=== PATIENT | male | born 1980 | race Caucasian/White ===

== ENCOUNTER 2023-02-16 05:41 | Emergency (ER) | payer MEDICAID, SELFPAY ==
[2023-02-16 05:41] VITALS: BP 122/83; PULSE 101; RESP 20; TEMP 36.6; O2SAT 92; BMI 46.6
--- NOTE | 2023-02-16 05:53 | XRR_ITS ---
PROCEDURE INFORMATION: Exam: XR Chest Exam date and time: 02/16/2023 5:58 AM Age: 42 years old Clinical indication: Shortness of breath; Additional info: SOB TECHNIQUE: Imaging protocol: Radiologic exam of the chest. Views: 1 view. COMPARISON: No relevant prior studies available. FINDINGS: Lungs: Unremarkable. No consolidation. Pleural spaces: Unremarkable. No pleural effusion. No pneumothorax. Heart/Mediastinum: Unremarkable. No cardiomegaly. Bones/joints: Unremarkable. XR/XR chest 1V portable [id number] IMPRESSION: No acute findings.
--- NOTE | 2023-02-16 05:53 | ECG_ITS ---
[facility] Test Date: 2023-02-16 Pat Name: Morgan Lagunas Department: Room: Gender: Male Mobile Nurse: : 1980 Requested By: Zeferino Uribe Order Number: [id number] Leon MD: Jose Daniel Coronel M.D. Measurements Intervals [place] Rate: 100 P: 23 TX: 132 QRS: 9 QRSD: 96 T: 117 QT: 337 QTc: 436 Interpretive Statements SINUS TACHYCARDIA POSSIBLE LEFT ATRIAL ENLARGEMENT [-0.1mV P-WAVE IN V1/V2] ABNORMAL QRS-T ANGLE [QRS-T AXIS DIFFERENCE > 60] No previous ECG available for comparison Electronically Signed On 02-16-2023 10:15:25 CDT by Jose Daniel Coornel M.D. [id number]
--- NOTE | 2023-02-16 05:54 | W.ED.EXTPRO ---
Documented by User: Zeferino Castellanos DO 02/16/23 18:20 HPI - Extremity Problem General: Chief complaint: Extremity Problem,Nontraumatic Stated complaint: SOB Time Seen by Provider: 02/16/23 05:49 History of Present Illness: 42-year-old male patient with a history of schizophrenia residing in a care home. He has diabetes as well. He presents with shortness of breath increasing over the past couple of days. He denies fever. He notes a cough with some sputum production that is brand. He is also noted increase in lower extremity swelling the past several days. He was started on furosemide 2 days ago in the care home for this. He denies chest pain. Associated symptoms: Deny chest pain, fever(s) or rash Review of Systems Const: Denies: fever(s) or chills ENMT: Denies: throat pain Card: Denies: chest pain or palpitations Resp: Reports: dyspnea and productive cough GI: Denies: abdominal pain, nausea or vomiting Skin/Breast: Denies: rash PFSH ED PFSH: Medical History (Updated 02/16/23 @ 08:31 by Tyree Roa MD) BETTY (obstructive sleep apnea) Pure hypercholesterolemia, unspecified Type 2 diabetes mellitus without complications Social History Smoking and tobacco/nicotine status: current every day tobacco/nicotine user cigarettes Quit status (tobacco/nicotine): not considering quitting Second hand smoke exposure: No Caregiver/support person: Yes Lives independently: No Household members: other Details: [facility] Facility Housing: Intermediate Marital status: Single service: No Current occupational status: disabled Current occupational exposures/hazards: No Pets and animals: Yes Pets & animals: cat(s) Leisure activites: music and games Sexually active: No Do you think of yourself as: Straight/Heterosexual Current gender identity: Male Special lyle needs: No Physical Exam Const: COMMON NORMALS: no acute distress GENERAL APPEARANCE: cooperative; not ill appearing and not frail appearing HENMT: COMMON NORMALS: normocephalic, atraumatic and Normal external nose present HEAD & SCALP: normocephalic and atraumatic FACE & SINUS: normal facial exam and face symmetric NOSE: Normal external nose present Eye: COMMON NORMALS: Equal, round and reactive pupils present and EOMs intact bilaterally PUPIL: Yes Equal, round and reactive pupils present Neck/C-Spine: GENERAL: Yes trachea midline Chest: CHEST: Yes Symmetrical chest wall rise Resp: COMMON NORMALS: normal respiratory effort, No retractions, No use of accessory muscles and clear to auscultation bilaterally AUSCULTATION: clear to auscultation bilaterally Cardio: COMMON NORMALS: regular rate and regular rhythm RATE: regular rate RHYTHM: regular rhythm GI: COMMON NORMALS: Normal to inspection, nondistended, normoactive bowel sounds present Extremity: GENERAL: Yes edema (1-2+) Neuro: MARIAH COMA SCALE: document GCS findings Star coma scale eye opening: Spontaneous Star coma scale verbal response: Orientated Star coma scale motor response: Obey commands Mariah coma scale total score: 15 SENSORY EXAM: Yes extremities (intact) Psych: COMMON NORMALS: speech normal SPEECH: Yes normal speech Skin: COMMON NORMALS: no rashes or lesions noted GENERAL SKIN EXAM: no rashes or lesions noted Course Vital Signs: Vital signs: Vital Signs Temperature 97.9 F 02/16/23 05:41 Pulse Rate 105 H 02/16/23 07:30 Respiratory Rate 13 02/16/23 07:30 Blood Pressure 139/106 02/16/23 07:30 Pulse Oximetry 94 02/16/23 07:30 Oxygen Delivery Me thod Room Air 02/16/23 07:30 MDM - Extremity (Nontraumatic) Medical Decision Making Laboratory ordered to include CBC CMP BNP chest x-ray. He will be checked out to Dr. Roa at shift change. Currently he is breathing room air, satting 92%. Pulse 100, blood pressure 122/83. Lab Data 02/16/23 05:46 02/16/23 05:46 Radiology Impressions Chest X-Ray 02/16/23 05:53 IMPRESSION: No acute findings. Laboratory Results WBC 10.55 10^3/uL (3.29-11.43) 02/16/23 05:46 RBC 5.06 10^6/uL (3.85-5.65) 02/16/23 05:46 Hgb 13.70 g/dL (11.27-16.99) 02/16/23 05:46 Hct 42.4 % (37-53) 02/16/23 05:46 MCV 83.8 fl (82-101) 02/16/23 05:46 MCH 27.1 pg (27-33) 02/16/23 05:46 MCHC 32.3 g/dL (30-55) 02/16/23 05:46 RDW 14.1 % (12.1-15.1) 02/16/23 05:46 Plt Count 227 10^3/cmm (157-399) 02/16/23 05:46 MPV 9.5 fL (7.4-10.4) 02/16/23 05:46 Neut % (Auto) 60.8 % 02/16/23 05:46 Lymph % (Auto) 26.4 % 02/16/23 05:46 Teller % (Auto) 8.5 % 02/16/23 05:46 Eos % (Auto) 3.5 % 02/16/23 05:46 Baso % (Auto) 0.4 % 02/16/23 05:46 Neut # (Auto) 6.42 10^3/uL (1.8-7.7) 02/16/23 05:46 Lymph # (Auto) 2.8 10^3/uL (0.8-4.8) 02/16/23 05:46 Teller # (Auto) 0.9 10^3/uL (0.2-0.9) 02/16/23 05:46 Eos # (Auto) 0.4 10^3/uL (0.0-0.8) 02/16/23 05:46 Baso # (Auto) 0.0 10^3/uL (0.0-0.1) 02/16/23 05:46 Nucleated RBC % (auto) 0 % 02/16/23 05:46 Nucleated RBCs # 0.0 /100WBC 02/16/23 05:46 Sodium 136 mmol/L (136-145) 02/16/23 05:46 Potassium 4.1 mmol/L (3.5-5.1) 02/16/23 05:46 Chloride 99 mmol/L (98-107) 02/16/23 05:46 Carbon Dioxide 29 mmol/L (22-29) 02/16/23 05:46 Anion Gap 12.1 (5-19) 02/16/23 05:46 BUN 8 mg/dL (6-20) 02/16/23 05:46 Creatinine 0.7 mg/dL (0.7-1.2) 02/16/23 05:46 GFR Calculation 123.1 mL/min (90-130) 02/16/23 05:46 Glucose 231 mg/dL (65-115) H 02/16/23 05:46 Calculated Osmolality 288 mOsm/kg (285-295) 02/16/23 05:46 Calcium 9.4 mg/dL (8.5-10.5) 02/16/23 05:46 Total Bilirubin 0.4 mg/dL (0.15-1.2) 02/16/23 05:46 AST 41 U/L (0-40) H 02/16/23 05:46 ALT 37 U/L (0-41) 02/16/23 05:46 Alkaline Phosphatase 61 U/L (40-130) 02/16/23 05:46 C-Reactive Protein 18.8 mg/L (0.0-4.9) H 02/16/23 05:46 NT-Pro-B Natriuret Pep 36 pg/mL (0-125) 02/16/23 05:46 Total Protein 6.9 g/dL (6.6-8.7) 02/16/23 05:46 Albumin 4.1 g/dL (3.5-5.2) 02/16/23 05:46 Globulin 2.8 g/dL (1.3-4.6) 02/16/23 05:46 SARS-CoV-2 Ag (Rapid) negative (Negative) 02/16/23 06:03 Discharge Plan Discharge Patient Disposition: Home Clinical Impression: Lower extremity edema Condition: Stable Prescriptions: No Action Lantus U-100 Insulin 100 unit/mL solution 60 unit SUBCUT .in am Lantus U-100 Insulin 100 unit/mL solution 60 unit SUBCUT .AT HS metoprolol tartrate 25 mg tablet 25 mg PO DAILY loratadine [Claritin] 10 mg tablet 10 mg PO DAILY glipizide 10 mg tablet 10 mg PO BID benztropine 1 mg tablet 1 mg PO BID fluticasone propionate [Flonase Allergy Relief] 50 mcg/actuation spray,suspension 2 spray INTRANASAL DAILY metformin 1,000 mg tablet 1,000 mg PO DAILY chlorpromazine 50 mg tablet 150 mg PO QID fenofibrate nanocrystallized [Tricor] 145 mg tablet 145 mg PO DAILY bisacodyl 5 mg tablet 5 mg PO DAILY calcium carbonate 400 mg/5 mL suspension PO acetaminophen [Tylenol] 325 mg tablet 325 mg PO QID PRN famotidine 40 mg tablet 40 mg PO DAILY doxycycline monohydrate 100 mg tablet 100 mg PO BID Qty: 14 0RF Discharge Orders: Discharge ED (Routine); Ordered 02/16/23 Ordered By: Tyree Roa Referrals: [facility] [Other] Phillip Almazan MD [Primary Care Provider] - Coding Level of Care Code ED Certified Ski Patroller for Chg Fwd Documented by User: Tyree Roa MD 02/23/23 02:07 HPI - Extremity Problem General: Chief complaint: Extremity Problem,Nontraumatic Stated complaint: SOB Time Seen by Provider: 02/16/23 05:49 Review of Systems General: Reports: 10 or more systems reviewed and unremarkable except in HPI and below PFSH ED PFSH: Medical History (Updated 02/16/23 @ 08:31 by Tyree Roa MD) BETTY (obstructive sleep apnea) Pure hypercholesterolemia, unspecified Type 2 diabetes mellitus without complications Social History Smoking and tobacco/nicotine status: current every day tobacco/nicotine user cigarettes Quit status (tobacco/nicotine): not considering quitting Second hand smoke exposure: No Caregiver/support person: Yes Lives independently: No Household members: other Details: [facility] Facility Housing: Intermediate Marital status: Single service: No Current occupational status: disabled Current occupational exposures/hazards: No Pets and animals: Yes Pets & animals: cat(s) Leisure activites: music and games Sexually active: No Do you think of yourself as: Straight/Heterosexual Current gender identity: Male Special lyle needs: No Physical Exam Neuro: MARIAH COMA SCALE: document GCS findings Star coma scale total score: 15 Course ED course: I assumed care of the patient at [address] Castellanos the outgoing ER physician. Reevaluation of the patient demonstrates that the patient is stable and in no acute distress at present. We are currently awaiting laboratory evaluation and radiographic examination results. The patient is on room air with oxygen saturation of 92 to 93%. He is resting comfortably at present. He does have lower extremity edema and it does appear on review of his previous medical records that he was recently prescribed furosemide diuretic for his lower leg edema. I will provide him IV furosemide here in the emergency department. Reevaluation(s): Reevaluation #1: Patient has been doing well during his ER visit we are currently awaiting for transport back to his long-term care facility he did receive IV diuretics and states that he is also hungry we will provide him a meal tray while in the emergency department and while we wait for his transport back to his long-term care facility. Vital Signs: Vital signs: Vital Signs Temperature 97.9 F 02/16/23 05:41 Pulse Rate 105 H 02/16/23 07:30 Respiratory Rate 13 02/16/23 07:30 Blood Pressure 139/106 02/16/23 07:30 Pulse Oximetry 94 02/16/23 07:30 Oxygen Delivery Me thod Room Air 02/16/23 07:30 MDM - Extremity (Nontraumatic) Medical Records I reviewed the patient's medical records. Lab Data I reviewed the patient's lab results. 02/16/23 05:46 02/16/23 05:46 Radiology Impressions Chest X-Ray 02/16/23 05:53 IMPRESSION: No acute findings. Laboratory Results WBC 10.55 10^3/uL (3.29-11.43) 02/16/23 05:46 RBC 5.06 10^6/uL (3.85-5.65) 02/16/23 05:46 Hgb 13.70 g/dL (11.27-16.99) 02/16/23 05:46 Hct 42.4 % (37-53) 02/16/23 05:46 MCV 83.8 fl (82-101) 02/16/23 05:46 MCH 27.1 pg (27-33) 02/16/23 05:46 MCHC 32.3 g/dL (30-55) 02/16/23 05:46 RDW 14.1 % (12.1-15.1) 02/16/23 05:46 Plt Count 227 10^3/cmm (157-399) 02/16/23 05:46 MPV 9.5 fL (7.4-10.4) 02/16/23 05:46 Neut % (Auto) 60.8 % 02/16/23 05:46 Lymph % (Auto) 26.4 % 02/16/23 05:46 Teller % (Auto) 8.5 % 02/16/23 05:46 Eos % (Auto) 3.5 % 02/16/23 05:46 Baso % (Auto) 0.4 % 02/16/23 05:46 Neut # (Auto) 6.42 10^3/uL (1.8-7.7) 02/16/23 05:46 Lymph # (Auto) 2.8 10^3/uL (0.8-4.8) 02/16/23 05:46 Teller # (Auto) 0.9 10^3/uL (0.2-0.9) 02/16/23 05:46 Eos # (Auto) 0.4 10^3/uL (0.0-0.8) 02/16/23 05:46 Baso # (Auto) 0.0 10^3/uL (0.0-0.1) 02/16/23 05:46 Nucleated RBC % (auto) 0 % 02/16/23 05:46 Nucleated RBCs # 0.0 /100WBC 02/16/23 05:46 Sodium 136 mmol/L (136-145) 02/16/23 05:46 Potassium 4.1 mmol/L (3.5-5.1) 02/16/23 05:46 Chloride 99 mmol/L (98-107) 02/16/23 05:46 Carbon Dioxide 29 mmol/L (22-29) 02/16/23 05:46 Anion Gap 12.1 (5-19) 02/16/23 05:46 BUN 8 mg/dL (6-20) 02/16/23 05:46 Creatinine 0.7 mg/dL (0.7-1.2) 02/16/23 05:46 GFR Calculation 123.1 mL/min (90-130) 02/16/23 05:46 Glucose 231 mg/dL (65-115) H 02/16/23 05:46 Calculated Osmolality 288 mOsm/kg (285-295) 02/16/23 05:46 Calcium 9.4 mg/dL (8.5-10.5) 02/16/23 05:46 Total Bilirubin 0.4 mg/dL (0.15-1.2) 02/16/23 05:46 AST 41 U/L (0-40) H 02/16/23 05:46 ALT 37 U/L (0-41) 02/16/23 05:46 Alkaline Phosphatase 61 U/L (40-130) 02/16/23 05:46 C-Reactive Protein 18.8 mg/L (0.0-4.9) H 02/16/23 05:46 NT-Pro-B Natriuret Pep 36 pg/mL (0-125) 02/16/23 05:46 Total Protein 6.9 g/dL (6.6-8.7) 02/16/23 05:46 Albumin 4.1 g/dL (3.5-5.2) 02/16/23 05:46 Globulin 2.8 g/dL (1.3-4.6) 02/16/23 05:46 SARS-CoV-2 Ag (Rapid) negative (Negative) 02/16/23 06:03 All radiology interpretation(s) finalized by discharge ED provider radiology interpretation(s): CXR: FINDINGS: Lungs: Unremarkable. No consolidation. Pleural spaces: Unremarkable. No pleural effusion. No pneumothorax. Heart/Mediastinum: Unremarkable. No cardiomegaly. Bones/joints: Unremarkable. XR/XR chest 1V portable [id number] IMPRESSION: No acute findings. Discharge Plan Discharge Patient Disposition: Home Clinical Impression: Lower extremity edema Condition: Stable Prescriptions: No Action Lantus U-100 Insulin 100 unit/mL solution 60 unit SUBCUT .in am Lantus U-100 Insulin 100 unit/mL solution 60 unit SUBCUT .AT HS metoprolol tartrate 25 mg tablet 25 mg PO DAILY loratadine [Claritin] 10 mg tablet 10 mg PO DAILY glipizide 10 mg tablet 10 mg PO BID benztropine 1 mg tablet 1 mg PO BID fluticasone propionate [Flonase Allergy Relief] 50 mcg/actuation spray,suspension 2 spray INTRANASAL DAILY metformin 1,000 mg tablet 1,000 mg PO DAILY chlorpromazine 50 mg tablet 150 mg PO QID fenofibrate nanocrystallized [Tricor] 145 mg tablet 145 mg PO DAILY bisacodyl 5 mg tablet 5 mg PO DAILY calcium carbonate 400 mg/5 mL suspension PO acetaminophen [Tylenol] 325 mg tablet 325 mg PO QID PRN famotidine 40 mg tablet 40 mg PO DAILY doxycycline monohydrate 100 mg tablet 100 mg PO BID Qty: 14 0RF Discharge Orders: Discharge ED (Routine); Ordered 02/16/23 Ordered By: Tyree Roa Referrals: [facility] [Other] Phillip Almazan MD [Primary Care Provider] - Coding Level of Care Code ED Certified Ski Patroller for Jaredg Li
[2023-02-16 06:00] VITALS: BP 122/83; PULSE 100; RESP 20; O2SAT 94
[2023-02-16 06:00] LABS: Basophils % 0.4 %; Eosinophils # 0.4 10^3/uL (0.0-0.8); Eosinophils % 3.5 %; Hematocrit 42.4 % (37-53); Lymphocytes # 2.8 10^3/uL (0.8-4.8); Lymphocytes % 26.4 %; Mean Corpuscular HGB Conc 32.3 g/dL (30-55); Mean Corpuscular Hemoglobin 27.1 pg (27-33); Mean Corpuscular Volume 83.8 fl (82-101); Mean Platelet Volume 9.5 fL (7.4-10.4); Monocytes # 0.9 10^3/uL (0.2-0.9); Monocytes % 8.5 %; Neutrophils # 6.42 10^3/uL (1.8-7.7); Neutrophils % 60.8 %; Nucleated Red Blood Cells % 0 %; Platelet Count 227 10^3/cmm (157-399); Red Blood Count 5.06 10^6/uL (3.85-5.65); Red Cell Distribution Width 14.1 % (12.1-15.1); White Blood Count 10.55 10^3/uL (3.29-11.43)
[2023-02-16 06:22] LABS: SARS Covid-2 Antigen negative (Negative)
[2023-02-16 06:25] LABS: Alanine Aminotransferase 37 U/L (0-41); Albumin Level 4.1 g/dL (3.5-5.2); Alkaline Phosphatase 61 U/L (40-130); Anion Gap 12.1 (5-19); Aspartate Amino Transferase 41 U/L (0-40); Blood Urea Nitrogen 8 mg/dL (6-20); C Reactive Protein 18.8 mg/L (0.0-4.9); Calcium 9.4 mg/dL (8.5-10.5); Carbon Dioxide 29 mmol/L (22-29); Chloride 99 mmol/L (98-107); Globulin 2.8 g/dL (1.3-4.6); Glomerular Filtration Rate 123.1 mL/min (90-130); Glucose 231 mg/dL (65-115); NT Pro B Type Natriuretic Pept 36 pg/mL (0-125); Osmolality Calculated 288 mOsm/kg (285-295); Potassium 4.1 mmol/L (3.5-5.1); Sodium 136 mmol/L (136-145); Total Bilirubin 0.4 mg/dL (0.15-1.2); Total Protein 6.9 g/dL (6.6-8.7)
[2023-02-16 07:30] VITALS: BP 139/106; PULSE 105; RESP 13; O2SAT 94
[2023-02-16] MEDS: FUROsemide 10 mg/mL SDV 4mL 40 MG IVP (08:23)
--- NOTE | 2023-02-16 08:28 | PC.NURSE ---
SHAWNEE Muñoz, called for an update and report given.
--- NOTE | 2023-02-16 09:15 | PC.NURSE ---
SHAWNEE Hdez- report given and advised that we are sending back xray and lab results, waiting medicaid ride
== END 2023-02-16 13:54 | disposition home or self-care (01) ==
PROVIDERS: Emergency Medicine; Emergency Provider Internal Medicine; PCP Internal Medicine
DX: R60.0 Localized edema (principal); Z79.02 Long term (current) use of antithrombotics/antiplatelets; Z79.4 Long term (current) use of insulin; Z11.52 Encounter for screening for COVID-19; E11.9 Type 2 diabetes mellitus without complications; F17.210 Nicotine dependence, cigarettes, uncomplicated
CPT/HCPCS: 71045; 80053; 83880; 85025; 86140; 87426; 93005; 96374; 99285; J1940

== ENCOUNTER → 2023-08-19 09:15 | Outpatient (BNVA) | payer MEDICAID, SELFPAY | PROVIDERS: PCP Internal Medicine; Visit Provider Nurse Practitioner Family | DX: L73.2 Hidradenitis suppurativa (principal); L89.93 Pressure ulcer of unspecified site, stage 3; Z51.89 Encounter for other specified aftercare | CPT/HCPCS: 87070; 87077; 87176; 87186; 87205 ==

== ENCOUNTER 2024-11-05 15:02 | Inpatient (IN) | payer MEDICAID, SELFPAY ==
--- OUTSIDE RECORDS SUMMARY | 2018-03-04 07:36 | XMS_ITS | Continuity of Care Document ---
Author Organization [facility] Address [address] [place] [phone] Phone Care Team Providers Care Groundhand Name Role Phone Elaine Schultz Unavailable Unavailable Allergies, Adverse Reactions, Alerts Substance Reaction Status Criticality HALOPERIDOL LACTATE Active No Infor mation haloperidol Active No Information Medications Medication Instructions Dosage Effective Dates (start - stop) Status Comments benztropine 1 mg tablet take 1 tablet by oral route 2 times every day 1 MG - Active chlorpromazine 50 mg tablet take 3 tablet by oral route every 6 hours 150 MG - Active perphenazine 2 mg tablet take 7 tablet by oral route 2 times every day (14mg dose) 14 MG - Active trazodone 50 mg tablet take 1 tablet by oral route every bedtime may repeat x 1 if not rest in 1 hour 50 MG - Active Procedures Procedure Date NURSING FAC CARE, SUBSEQ NURSING FAC CARE, SUBSEQ NURSING FAC CARE, SUBSEQ NURSING FAC CARE, SUBSEQ NURSING FAC CARE, SUBSEQ NURSING FAC CARE, SUBSEQ NURSING FAC CARE, SUBSEQ NURSING FAC CARE, SUBSEQ NURSING FAC CARE, SUBSEQ ANNUAL NURSING FAC ASSESSMNT NURSING FAC CARE, SUBSEQ NURSING FAC CARE, SUBSEQ NURSING FAC CARE, SUBSEQ NURSING FAC CARE, SUBSEQ NURSING FAC CARE, SUBSEQ NURSING FAC CARE, SUBSEQ NURSING FAC CARE, SUBSEQ NURSING FAC CARE, SUBSEQ NURSING FAC CARE, SUBSEQ NURSING FAC CARE, SUBSEQ NURSING FAC CARE, SUBSEQ NURSING FAC CARE, SUBSEQ NURSING FAC CARE, SUBSEQ NURSING FAC CARE, SUBSEQ ANNUAL NURSING FAC ASSESSMNT NURSING FAC CARE, SUBSEQ NURSING FAC CARE, SUBSEQ NURSING FAC CARE, SUBSEQ NURSING FAC CARE, SUBSEQ NURSING FAC CARE, SUBSEQ NURSING FAC CARE, SUBSEQ NURSING FAC CARE, SUBSEQ NURSING FAC CARE, SUBSEQ NURSING FAC CARE, SUBSEQ NURSING FAC CARE, SUBSEQ ANNUAL NURSING FAC ASSESSMNT NURSING FACILITY CARE, INIT Advance Directives Directive Yes / No Effective Date File Name No Information Encounters Encounter Description Practice Location Reason(s) For Visit Diagnoses Date Provider Providers Copied on Encounter [facility], [address] [place] [address], [facility], tel:[phone] *[facility] No Information 8 Bola Henry. [address] [place], [place], [facility], . tel:[phone] NURSING FAC CARE, [facility], [address] [place] [address], [facility], tel:[phone] [facility] foot (chief complaint) Nail dystrophyType 2 diabetes mellitus w/ other circulatory complicationAt herosclerosis of other arteries 0 7 Raul Harleen. [address], [place], [facility], [place]. tel:[phone] NURSING FAC CARE, [facility], [address], [place], [facility], tel:[phone] [facility] chronic conditions (chief complaint)p yonatial cyst (chief complaint) Paranoid schizophreniaO ther insomniaPiloni lalo abscess [phone] No Information NURSING FAC CARE, [facility], [address] [place], [address], [place] tel:[phone] [facility] chronic conditions (chief complaint)H &P (chief complaint) Dietary counseling and surveillance No Information NURSING FAC CARE, [facility], [address] [place] [address], [address], [place] tel:[phone] [facility] chronic conditions (chief complaint) No Information No Information NURSING FAC CARE, [facility], [address] [place] [address], [address], [place] tel:[phone] [facility] chronic conditions (chief complaint) No Information No Information NURSING FAC CARE, [facility], [address] [place] [address], [address], [place] tel:[phone] [facility] chronic conditions (chief complaint) No Information No Information NURSING FAC CARE, [facility], [address] [place] [address], [address], [place] tel:[phone] [facility] chronic conditions (chief complaint) Type 2 diabetes mellitus with hyperglycemia No Information NURSING FAC CARE, [facility], [address] [place] [address], [address], [place] tel:[phone] [facility] chronic conditions (chief complaint) No Information No Information NURSING FAC CARE, [facility], [address] [place] [address], [address], [place] tel:[phone] [facility] chronic conditions (chief complaint) No Information No Information ANNUAL NURSING FAC ASSESSMNT [facility], [address] [place] [address], [address], [place] tel:[phone] [facility] chronic conditions (chief complaint)H &P (chief complaint) No Information 6 No Information NURSING FAC CARE, [facility], [address] [place] [address], [address], [place] tel:[phone] [facility] chronic conditions (chief complaint) No Information Feb-0 3 6 No Information NURSING FAC CARE, [facility], [address] [place] [address], [address], tel:[phone] [facility] chronic conditions (chief complaint) No Information Jan-0 6 No Information NURSING FAC CARE, [facility], [address] [place] [address], [address], [place] tel:[phone] [facility] chronic conditions (chief complaint) No Information Dec-0 6 No Information NURSING FAC CARE, [facility], [address] [place] [address], [address], tel:[phone] [facility] chronic conditions (chief complaint) No Information Nov-0 6 No Information NURSING FAC CARE, [facility], [address] [place] [address], [address], [place] tel:[phone] [facility] chronic conditions (chief complaint) No Information 0 6 No Information NURSING FAC CARE, [facility], [address] [place] [address], [address], [place] tel:[phone] [facility] chronic conditions (chief complaint) No Information 6 No Information NURSING FAC CARE, [facility], [address] [place] [address], [address], [place] tel:[phone] [facility] chronic conditions (chief complaint) No Information 6 No Information NURSING FAC CARE, [facility], [address] [place] [address], [address], [place] tel:[phone] [facility] chronic conditions (chief complaint) No Information 6 No Information NURSING FAC CARE, [facility], [address] [place] [address], [address], [place] tel:[phone] [facility] chronic conditions (chief complaint) No Information 0 6 No Information NURSING FAC CARE, [facility], [address] [place] [address], [address], tel:[phone] [facility] chronic conditions (chief complaint) No Information 6 No Information NURSING FAC CARE, [facility], [address] [place] [address], [address], tel:[phone] [facility] chronic conditions (chief complaint) No Information 6 No Information NURSING FAC CARE, [facility], [address] [place] [address], [address], tel:[phone] [facility] chronic conditions (chief complaint) No Information 5 No Information NURSING FAC CARE, [facility], [address] [place] [address], [address], tel:[phone] [facility] chronic conditions (chief complaint) No Information 5 No Information NURSING FAC CARE, [facility], [address] [place] [address], [address], tel:[phone] [facility] chronic conditions (chief complaint) No Information 5 No Information ANNUAL NURSING FAC ASSESSMNT [address], [address], tel:[phone] [facility] Chronic conditions (chief complaint)H istory & Physical (chief complaint)S chiophrenia (chief complaint) No Information 5 No Information NURSING FAC CARE, [facility], [address] [place] [address], [address], tel:[phone] [facility] Chronic conditions (chief complaint) No Information 5 No Information NURSING FAC CARE, [address], [address], tel:[phone] [facility] Chronic conditions (chief complaint) No Information 8 5 No Information NURSING FAC CARE, [facility], [address] [place] [address], [address], tel:[phone] [facility] Chronic conditions (chief complaint) No Information 8- 5 No Information NURSING FAC CARE, [facility], [address] [place] [address], [address], [place] tel:[phone] [facility] Chronic conditions (chief complaint) No Information 5 No Information NURSING FAC CARE, [facility], [address] [place] [address], [address], [place] tel:[phone] [facility] Chronic conditions (chief complaint) No Information 0 5 No Information NURSING FAC CARE, [facility], [address] [place] [address], [address], [place] tel:[phone] [facility] Chronic conditions (chief complaint) No Information 5 No Information NURSING FAC CARE, [facility], [address] [place] [address], [address], [place] tel:[phone] [facility] Chronic conditions (chief complaint) No Information 5 No Information NURSING FAC CARE, [facility], [address] [place] [address], [address], [place] tel:[phone] [facility] Chronic conditions (chief complaint) No Information 5 No Information NURSING FAC CARE, [facility], [address] [place] [address], [address], [place] tel:[phone] [facility] Chronic conditions (chief complaint) No Information 4 No Information NURSING FAC CARE, [facility], [address] [place] [address], [address], [place] tel:[phone] [facility] Chronic conditions (chief complaint) No Information 0 8- 4 No Information ANNUAL NURSING FAC ASSESSMNT [facility], [address] [place] [address], [address], tel:[phone] [facility] Chronic conditions (chief complaint)H istory & Physical (chief complaint) No Information Sep-0 3- 4 No Information [facility], [address] [place] [address], [place], [address], [place] tel:[phone] [facility] chronic conditions (chief complaint) No Information No Information [facility], [address] [facility] [place], [address], [place] tel:[phone] *[facility] No Information No Information Family History Family Member Type Diagnosis Age At Onset Mother Problem (finding) Alive and well Immunizations Vaccine Date Status Comments pneumo (2 yrs or older) (PPV23) administe red Source: Other Provider Payers Payer name Insurance type Covered republican ID Authoriza tion(s) No Information Social History Type Description Quantity Date Captured Comments Sex Male Smoking Status No Information Chief Complaint And Reason For Visit No Information Reason For Referral Reason For Referral No Information Plan Of Treatment Date Type Action Status Goal Dietary management education , guidance, and counseling completed Goal Dietary management education , guidance, and counseling completed Goal Dietary management education , guidance, and counseling completed Goal Dietary management education , guidance, and counseling completed Goal Dietary management education , guidance, and counseling completed Goal Dietary management education , guidance, and counseling completed Goal Dietary management education , guidance, and counseling completed Goal Dietary management education , guidance, and counseling completed Goal Dietary management education , guidance, and counseling completed Goal Dietary management education , guidance, and counseling completed Goal Dietary management education , guidance, and counseling completed Goal Dietary management education , guidance, and counseling completed Goal Dietary management education , guidance, and counseling completed Goal Dietary management education , guidance, and counseling completed Goal Dietary management education , guidance, and counseling completed Goal Dietary management education , guidance, and counseling completed Goal Dietary management education , guidance, and counseling completed Goal Dietary management education , guidance, and counseling completed History Of Present Illness Encounter Date Complaint History Of Prese nt Illness foot It occurs interm ittently and is stable. Location: foot. There is no radiation. Context: there is no injury. The pain is aggravated by climbing stairs, walking and standing. The pain is relieved by toenail care. Associated symptoms include decreased mobility, numbness, swelling and weakness. Pertinent negatives include bruising, crepitus, difficulty initiating sleep, joint instability, joint tenderness, limping, locking, nocturnal awakening, nocturnal pain, popping, spasms, tingling in the arms and tingling in the legs. chronic conditions 1) Paranoid s chizophrenia (onset 11/12/2013; Stable.) 2) Other insomnia (onset 11/12/2013; Stable.) pyonatial cyst The symptoms beg an 2 weeks ago. The symptoms are reported as being moderate. He states the symptoms are acute and are of new onset. appt with dr. teran for removal. H&P chronic conditions 1) Paranoid s chizophrenia (onset 11/12/2013; Stable.) 2) Other insomnia (onset 11/12/2013; Stable.) chronic conditions 1) Paranoid s chizophrenia (onset 11/12/2013; Stable.) 2) Other insomnia (onset 11/12/2013; Stable.) chronic conditions 1) Paranoid s chizophrenia (onset 11/12/2013; Stable.) 2) Other insomnia (onset 11/12/2013; Stable.) chronic conditions 1) Paranoid s chizophrenia (onset 11/12/2013; Stable.) 2) Other insomnia (onset 11/12/2013; Stable.) chronic conditions 1) Paranoid s chizophrenia (onset 11/12/2013; Stable.) 2) Other insomnia (onset 11/12/2013; Stable.) chronic conditions 1) Paranoid s chizophrenia (onset 11/12/2013; Stable.) 2) Other insomnia (onset 11/12/2013; Stable.) chronic conditions 1) Other inso mnia (onset 11/12/2013; Stable.) 2) Paranoid schizophrenia (onset 11/12/2013; Stable.) H&P chronic conditions 1) Paranoid s chizophrenia (onset 11/12/2013; Stable.) 2) Other insomnia (onset 11/12/2013; Stable.) chronic conditions 1) Paranoid s chizophrenia (onset 11/12/2013; Stable.) 2) Other insomnia (onset 11/12/2013; Stable.) chronic conditions 1) Paranoid s chizophrenia (onset 11/12/2013; Stable.) 2) Other insomnia (onset 11/12/2013; Stable.) chronic conditions 1) Paranoid s chizophrenia (onset 11/12/2013; Stable.) chronic conditions 1) Other inso mnia (onset 11/12/2013; Stable.) 2) Paranoid schizophrenia (onset 11/12/2013; Stable.) chronic conditions 1) Other inso mnia (onset 11/12/2013; Stable.) 2) Paranoid schizophrenia (onset 11/12/2013; Stable.) 3) Type 2 diabetes mellitus with hyperglycemia (Chronic.) Pertinent negatives include fatigue. chronic conditions 1) Paranoid s chizophrenia (onset 11/12/2013; Stable.) 2) Other insomnia (onset 11/12/2013; Stable.) Pertinent negatives include fatigue. chronic conditions 1) Other inso mnia (onset 11/12/2013; Stable.) 2) Paranoid schizophrenia (onset 11/12/2013; Stable.) 3) Type 2 diabetes mellitus with hyperglycemia (Chronic.) Pertinent negatives include fatigue. chronic conditions 1) Other inso mnia (onset 11/12/2013; Stable.) 2) Paranoid schizophrenia (onset 11/12/2013; Stable.) chronic conditions 1) Paranoid s chizophrenia (onset 11/12/2013; Stable.) chronic conditions 1) Paranoid s chizophrenia (onset 11/12/2013; Stable.) 2) Other insomnia (onset 11/12/2013; Stable.) chronic conditions 1) Paranoid s chizophrenia (onset 11/12/2013; Stable.) 2) Other insomnia (onset 11/12/2013; Stable.) chronic conditions 1) Paranoid s chizophrenia (onset 11/12/2013; Stable.) 2) Other insomnia (onset 11/12/2013; Stable.) Pertinent negatives include fatigue. chronic conditions 1) Paranoid s chizophrenia (onset 11/12/2013; Stable.) 2) Other insomnia (onset 11/12/2013; Stable.) Pertinent negatives include fatigue. chronic conditions 1) Paranoid s chizophrenia (onset 11/12/2013; Stable.) 2) Other insomnia (onset 11/12/2013; Stable.) Chronic conditions History & Physical Resident at [facility] living conditions Schiophrenia Chronic conditions Chronic conditions Chronic conditions Chronic conditions Chronic conditions Chronic conditions Chronic conditions Chronic conditions Chronic conditions Chronic conditions History & Physical Chronic conditions chronic conditions Functional Status Date Functional Assessmen t No Information Instructions Date Instruction Additional Deanar sid Encouraged patient t o follow and maintain medications as prescribed and avoid skipping doses. Encouraged patient to report any changes of condition. Reviewed and renewed all medications via POS at facility. Related to Pilonidal abscess Encourage patient to follow medications are prescribed and avoid skipping doses. Avoid triggers that enhance symptoms of disease and report changes to staff immediately. Related to Paranoid schizophrenia Encouraged patient t o avoid daytime naps, reduce evening activities that discourage sleep and avoid foods & drinks that discourage sleep. Related to Other insomnia Reviewed and renewed all medications via POS at facility. Related to Dietary counseling and surveillance Encouraged patient t o follow and maintain medications as prescribed and avoid skipping doses. Encouraged patient to report any changes of condition. Related to Body mass index (BMI) 40.0-44.9, adult Encouraged patient t o avoid daytime naps, reduce evening activities that discourage sleep and avoid foods & drinks that discourage sleep. Related to Other insomnia Encourage patient to follow medications are prescribed and avoid skipping doses. Avoid triggers that enhance symptoms of disease and report changes to staff immediately. Related to Paranoid schizophrenia Dietary management e ducation, guidance, and counseling Related to Body mass index (BMI) 40.0-44.9, adult Encouraged patient t o avoid daytime naps, reduce evening activities that discourage sleep and avoid foods & drinks that discourage sleep. Reviewed and renewed all medications via POS at facility. Related to Other insomnia Encourage patient to follow medications are prescribed and avoid skipping doses. Avoid triggers that enhance symptoms of disease and report changes to staff immediately. Related to Paranoid schizophrenia Encourage patient to follow medications are prescribed and avoid skipping doses. Avoid triggers that enhance symptoms of disease and report changes to staff immediately. Related to Paranoid schizophrenia Encouraged patient t o avoid daytime naps, reduce evening activities that discourage sleep and avoid foods & drinks that discourage sleep. Reviewed and renewed all medications via POS at facility. Related to Other insomnia Encourage patient to follow medications are prescribed and avoid skipping doses. Avoid triggers that enhance symptoms of disease and report changes to staff immediately. Related to Paranoid schizophrenia Encouraged patient t o avoid daytime naps, reduce evening activities that discourage sleep and avoid foods & drinks that discourage sleep. Reviewed and renewed all medications via POS at facility. Related to Other insomnia Encourage patient to continue to follow low sugar and starch diet and avoid foods containing them. Report any changes or injury to feet and monitor sores due to slow healing. Follow medication regiment as prescribed and avoid skipping doses. Reviewed and renewed all medications via POS at facility. Related to Type 2 diabetes mellitus with hyperglycemia Encouraged patient t o avoid daytime naps, reduce evening activities that discourage sleep and avoid foods & drinks that discourage sleep. Related to Other insomnia Encourage patient to follow medications are prescribed and avoid skipping doses. Avoid triggers that enhance symptoms of disease and report changes to staff immediately. Related to Paranoid schizophrenia Encourage patient to follow medications are prescribed and avoid skipping doses. Avoid triggers that enhance symptoms of disease and report changes to staff immediately. Related to Paranoid schizophrenia Encouraged patient t o avoid daytime naps, reduce evening activities that discourage sleep and avoid foods & drinks that discourage sleep. Reviewed and renewed all medications via POS at facility. Related to Other insomnia Encouraged patient t o avoid daytime naps, reduce evening activities that discourage sleep and avoid foods & drinks that discourage sleep. Related to Other insomnia Encourage patient to follow medications are prescribed and avoid skipping doses. Avoid triggers that enhance symptoms of disease and report changes to staff immediately. Reviewed and renewed all medications via POS at facility. Related to Paranoid schizophrenia Reviewed and renewed all medications via POS at facility. Related to Dietary counseling and surveillance Encourage patient to follow medications are prescribed and avoid skipping doses. Avoid triggers that enhance symptoms of disease and report changes to staff immediately. Related to Paranoid schizophrenia Encouraged patient t o avoid daytime naps, reduce evening activities that discourage sleep and avoid foods & drinks that discourage sleep. Related to Other insomnia Encouraged patient t o reduce calorie intake and increase daily activity. Educated patient that reducing body weight can assist in control of other chronic diseases. Related to Body mass index (BMI) 40.0-44.9, adult Dietary management e ducation, guidance, and counseling Related to Body mass index (BMI) 40.0-44.9, adult Encouraged patient t o avoid daytime naps, reduce evening activities that discourage sleep and avoid foods & drinks that discourage sleep. Reviewed and renewed all medications via POS at facility. Related to Other insomnia Encourage patient to follow medications are prescribed and avoid skipping doses. Avoid triggers that enhance symptoms of disease and report changes to staff immediately. Related to Paranoid schizophrenia Reviewed and renewed all medications via POS at facility. Related to Dietary counseling and surveillance Encouraged patient t o reduce calorie intake and increase daily activity. Educated patient that reducing body weight can assist in control of other chronic diseases. Related to Body mass index (BMI) 40.0-44.9, adult Encourage patient to follow medications are prescribed and avoid skipping doses. Avoid triggers that enhance symptoms of disease and report changes to staff immediately. Related to Paranoid schizophrenia Encouraged patient t o avoid daytime naps, reduce evening activities that discourage sleep and avoid foods & drinks that discourage sleep. Related to Other insomnia Dietary management e ducation, guidance, and counseling Related to Body mass index (BMI) 40.0-44.9, adult Encourage patient to follow medications are prescribed and avoid skipping doses. Avoid triggers that enhance symptoms of disease and report changes to staff immediately. Reviewed and renewed all medications via POS at facility. Related to Paranoid schizophrenia Encourage patient to follow medications are prescribed and avoid skipping doses. Avoid triggers that enhance symptoms of disease and follow up with behavioral health provider. Reviewed and renewed all medications via POS at facility. Related to Paranoid schizophrenia Encouraged patient t o avoid daytime naps, reduce evening activities that discourage sleep and avoid foods & drinks that discourage sleep. Related to Other insomnia Encourage patient to continue to follow low sugar and starch diet and avoid foods containing them. Report any changes or injury to feet and monitor sores due to slow healing. Follow medication regiment as prescribed and avoid skipping doses. Reviewed and renewed all medications via POS at facility. Related to Type 2 diabetes mellitus with hyperglycemia Encouraged patient t o avoid daytime naps, reduce evening activities that discourage sleep and avoid foods & drinks that discourage sleep. Related to Other insomnia Encourage patient to follow medications are prescribed and avoid skipping doses. Avoid triggers that enhance symptoms of disease and follow up with behavioral health provider. Related to Paranoid schizophrenia Encourage patient to follow medications are prescribed and avoid skipping doses. Avoid triggers that enhance symptoms of disease and follow up with behavioral health provider. Related to Paranoid schizophrenia Encouraged patient t o avoid daytime naps, reduce evening activities that discourage sleep and avoid foods & drinks that discourage sleep. Reviewed and renewed all medications via POS at facility. Related to Other insomnia Encourage patient to follow medications are prescribed and avoid skipping doses. Avoid triggers that enhance symptoms of disease and follow up with behavioral health provider. Related to Paranoid schizophrenia Encouraged patient t o avoid daytime naps, reduce evening activities that discourage sleep and avoid foods & drinks that discourage sleep. Related to Other insomnia Encourage patient to continue to follow low sugar and starch diet and avoid foods containing them. Report any changes or injury to feet and monitor sores due to slow healing. Follow medication regiment as prescribed and avoid skipping doses. Reviewed and renewed all medications via POS at facility. Related to Type 2 diabetes mellitus with hyperglycemia Encouraged patient t o avoid daytime naps, reduce evening activities that discourage sleep and avoid foods & drinks that discourage sleep. Related to Other insomnia Encourage patient to follow medications are prescribed and avoid skipping doses. Avoid triggers that enhance symptoms of disease and follow up with behavioral health provider. Related to Paranoid schizophrenia Encourage patient to continue to follow low sugar and starch diet and avoid foods containing them. Report any changes or injury to feet and monitor sores due to slow healing. Follow medication regiment as prescribed and avoid skipping doses. Reviewed and renewed all medications via POS at facility. Related to Type 2 diabetes mellitus with hyperglycemia Encourage patient to follow medications are prescribed and avoid skipping doses. Avoid triggers that enhance symptoms of disease and follow up with behavioral health provider. Related to Paranoid schizophrenia Reviewed and renewed all medications via POS at facility. Related to Dietary counseling and surveillance Encouraged patient t o reduce calorie intake and increase daily activity. Educated patient that reducing body weight can assist in control of other chronic diseases. Related to Body mass index (BMI) 40.0-44.9, adult Dietary management e ducation, guidance, and counseling Related to Body mass index (BMI) 40.0-44.9, adult Encouraged patient t o avoid daytime naps, reduce evening activities that discourage sleep and avoid foods & drinks that discourage sleep. Reviewed and renewed all medications via POS at facility. Related to Other insomnia Encourage patient to follow medications are prescribed and avoid skipping doses. Avoid triggers that enhance symptoms of disease and follow up with behavioral health provider. Related to Paranoid schizophrenia Encouraged patient t o follow and maintain medications as prescribed and avoid skipping doses. Encouraged patient to report any changes of condition. Related to Paranoid schizophrenia Encouraged patient t o avoid daytime naps, reduce evening activities that discourage sleep and avoid foods & drinks that discourage sleep. Reviewed and renewed all medications via POS at facility. Related to Other insomnia Encouraged patient t o avoid daytime naps, reduce evening activities that discourage sleep and avoid foods & drinks that discourage sleep. Related to Other insomnia Encouraged patient t o reduce calorie intake and increase daily activity. Educated patient that reducing body weight can assiste in control of other chronic diseases. Related to Body mass index (BMI) 40.0-44.9, adult Encouraged patient t o follow and maintain medications as prescribed and avoid skipping doses. Encouraged patient to report any changes of condition. Related to Paranoid schizophrenia Dietary management e ducation, guidance, and counseling Related to Body mass index (BMI) 40.0-44.9, adult Encouraged patient t o reduce calorie intake and increase daily activity. Educated patient that reducing body weight can assiste in control of other chronic diseases. Related to Body mass index (BMI) 40.0-44.9, adult Encouraged patient t o follow and maintain medications as prescribed and avoid skipping doses. Encouraged patient to report any changes of condition. Related to Paranoid schizophrenia Encouraged patient t o avoid daytime naps, reduce evening activities that discourage sleep and avoid foods & drinks that discourage sleep. Related to Other insomnia Dietary management e ducation, guidance, and counseling Related to Body mass index (BMI) 40.0-44.9, adult Encouraged patient t o reduce calorie intake and increase daily activity. Educated patient that reducing body weight can assiste in control of other chronic diseases. Related to Body mass index (BMI) 40.0-44.9, adult Encouraged patient t o reduce calorie intake and increase daily activity. Educated patient that reducing body weight can assiste in control of other chronic diseases. Related to Other obesity due to excess calories Encouraged patient t o follow and maintain medications as prescribed and avoid skipping doses. 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 Related to Paranoid schizophrenia Encouraged patient t o avoid daytime naps, reduce evening activities that discourage sleep and avoid foods & drinks that discourage sleep. Related to Other insomnia Dietary management e ducation, guidance, and counseling Related to Body mass index (BMI) 40.0-44.9, adult Medications are sanju ged via POS at facility Related to Unspecified schizophrenia, unspecified state Dietary management e ducation, guidance, and counseling Related to Dietary surveillance and counseling Dietary management e ducation, guidance, and counseling Related to Dietary surveillance and counseling Dietary management e ducation, guidance, and counseling Related to Obesity, unspecified Dietary management e ducation, guidance, and counseling Related to Obesity, unspecified Dietary management e ducation, guidance, and counseling Related to Obesity, unspecified Dietary management e ducation, guidance, and counseling Related to Obesity, unspecified Dietary management e ducation, guidance, and counseling Related to Obesity, unspecified Dietary management e ducation, guidance, and counseling Related to Obesity, unspecified Dietary management e ducation, guidance, and counseling Related to Obesity, unspecified Dietary management e ducation, guidance, and counseling Related to Obesity, unspecified Dietary management e ducation, guidance, and counseling Related to Obesity, unspecified Dietary counseling Related to Ob esity unspecified, BMI 30-39 Assessments Type Assessment Date No Information Patient Care Teams Name Effective Dates (start - stop) Status Members No Information
--- OUTSIDE RECORDS SUMMARY | 2024-10-01 10:20 | XMS_ITS ---
Author Organization [facility] Address [address] [place] [address] Care Team Providers Care Pipe Cutter Name Role Phone Cam Almazan Primary Care Provider Allergies Allergen (clinical drug ingredient) Drug/Non Drug Allergy documented on EMR Reaction Allergy Type Onset Date Status Haldol unknown Drug Allergy Active REASON FOR VISIT assisted visit at [place], [place] Medications Medication SIG (Take, Route, Frequency, Duration) Notes Start Date End Date Status glipiZIDE 10 MG Tablet 1 tablet 30 minut es before breakfast or dinner Orally twice a day; Duration: 30 day(s) 03/20/2022 Active Metoprolol Tartrate 50 MG Tablet 1 tablet with food Orally once a day; Duration: 30 days 03/20/2022 Active Perphenazine 2 MG Tablet half a tab Oral ly Twice a day; Duration: 30 day(s) 03/20/2022 Active Benztropine Mesylate 1 MG Tablet 1 tablet Orally twice daily; Duration: 30 day(s) 03/20/2022 Activ e metFORMIN HCl 1000 MG Tablet 1 tablet with a meal Orally twice daily; Duration: 30 day(s) 03/20/2022 Active chlorproMAZINE HCl 100 mg Tablet TAKE ONE TABLET BY MOUTH EVERY 6 HOURS with THE 50mg TO = 150mg; Duration: 30 Active Fenofibrate 145 mg Tablet TAKE ONE TABLE T BY MOUTH At Bedtime; Duration: 30 Active Lantus 100 UNIT/ML Solution 70 units Subcutaneous two times a day every AM and HS; Duration: 30 days 03/20/2022 Active chlorproMAZINE HCl 50 mg Tablet TAKE ONE TABLET BY MOUTH EVERY 6 HOURS with 100mg [id number]; Duration: 30 Active Omeprazole 20 MG Capsule Delayed Release 1 capsule 30 minutes before morning meal Orally Once a day; Duration: 30 day(s) 03/20/2022 Active chlorproMAZINE HCl 25 mg Tablet TAKE ONE TABLET BY MOUTH EVERY 6 HOURS with 100 MG; Duration: 30 Active Doxycycline Hyclate 100 MG Capsule 1 capsule Orally Once a day Active Aldactazide 25-25 MG Tablet 1 tablet Orally Once a day A ctive NovoLOG 100 unit/mL Solution Inject SUBCUTANEOUSLY PER sliding scale. max DOSE 15 UNITS BEFORE MEALS AND At Bedtime. FOUR TIMES DAILY; Duration: 16 Active Claritin 10 MG Tablet 1 tablet Orally Once a day Active Encounters Encounter Location Date Provider Diagnosis [facility] [address] [place] [address] 10/01/2024 Cam Almazan Assessments Encounter Date Diagnosis (ICD Code) Assessment Notes Treatment Notes Treatment Clinical Notes Section Notes 10/01/2024 Other Medications wer e reviewed. I will continue without changes. Nursing staff is to contact me with any symptoms arising. Orders signed and documented with nursing staff. Vitals taken and recorded at [facility]. Plan Of Treatment Treatment Notes Assessment Notes Other Medications were rev iewed. I will continue without changes. Nursing staff is to contact me with any symptoms arising. Orders signed and documented with nursing staff. Vitals taken and recorded at [facility]. Next Appt Details Follow Up: 4 Weeks, Reason: Provider Name:Cam Almazan, 11/05/2024 03:20:00 PM, [address], [place], [address], History and Physical Notes * HPI (History of Present Illness) Category Sub-Category Detail Notes Category Not es : The patient is seen in the [facility] today for follow-up. Staff reports no new complaints. The review of systems and exam are unchanged from previous. Patient denies pain and is comfortable. Examination Category Sub-Category Detail Notes Category Not es General Examination GENERAL APPEARANCE: in no ac [place] distress. Vital signs as documented. NECK/THYROID: no JVD HEART: notable for regular rhythym, normal sounds and absence of murmurs, rubs or gallops. LUNGS: Lungs clear ABDOMEN: unremarkable, no org anomegaly , no masses, or abdominal aortic enlargement. SKIN: warm and dry, withou t overt rashes. Progress Notes * Morgan HAWKINS IIIDOB:[birth year] (44 yo M)Acc No.[id number]:10/01/2024 Patient: Morgan Mcdaniel III Provider: Lambert Almazan MD :1980 A ge:44 Y S ex:Male Date:10/01/2024 Address:[address] , [place], [id number] Subjective: * Chief Complaints: * N ursing home visit at [place], [place] * HPI: * :: The patient is seen in the [facility] today for follow-up. Staff reports no new complaints. The review of systems and exam are unchanged from previous. Patient denies pain and is comfortable. * Medical History: Diabetes mellitus GERD (gastroesophageal reflux disease) Schizophrenia, unspecified Medical History Verified * Medications: T akingchlorproMAZINE HCl 25 mg Tablet TAKE ONE TABLET BY MOUTH EVERY 6 HOURS with 100 MG Aldactazide 25-25 MG Tablet 1 tablet Orally Once a day Doxycycline Hyclate 100 MG Capsule 1 capsule Orally Once a day Claritin 10 MG Tablet 1 tablet Orally Once a day NovoLOG 100 unit/mL Solution Inject SUBCUTANEOUSLY PER sliding scale. max DOSE 15 UNITS BEFORE MEALS AND At Bedtime. FOUR TIMES DAILY Lantus 100 UNIT/ML Solution 70 units Subcutaneous two times a day every AM and HS Omeprazole 20 MG Capsule Delayed Release 1 capsule 30 minutes before morning meal Orally Once a day chlorproMAZINE HCl 50 mg Tablet TAKE ONE TABLET BY MOUTH EVERY 6 HOURS with 100mg [id number] Fenofibrate 145 mg Tablet TAKE ONE TABLET BY MOUTH At Bedtime chlorproMAZINE HCl 100 mg Tablet TAKE ONE TABLET BY MOUTH EVERY 6 HOURS with THE 50mg TO = 150mg Metoprolol Tartrate 50 MG Tablet 1 tablet with food Orally once a day glipiZIDE 10 MG Tablet 1 tablet 30 minutes before breakfast or dinner Orally twice a day Benztropine Mesylate 1 MG Tablet 1 tablet Orally twice daily Perphenazine 2 MG Tablet half a tab Orally Twice a day metFORMIN HCl 1000 MG Tablet 1 tablet with a meal Orally twice daily Medication List reviewed and reconciled with the patientTaking chlorproMAZINE HCl 25 mg Tablet TAKE ONE TABLET BY MOUTH EVERY 6 HOURS with 100 MG Taking Aldactazide 25-25 MG Tablet 1 tablet Orally Once a day Taking Doxycycline Hyclate 100 MG Capsule 1 capsule Orally Once a day Taking Claritin 10 MG Tablet 1 tablet Orally Once a day Taking NovoLOG 100 unit/mL Solution Inject SUBCUTANEOUSLY PER sliding scale. max DOSE 15 UNITS BEFORE MEALS AND At Bedtime. FOUR TIMES DAILY Taking Lantus 100 UNIT/ML Solution 70 units Subcutaneous two times a day every AM and HS Taking Omeprazole 20 MG Capsule Delayed Release 1 capsule 30 minutes before morning meal Orally Once a day Taking chlorproMAZINE HCl 50 mg Tablet TAKE ONE TABLET BY MOUTH EVERY 6 HOURS with 100mg [id number] Taking Fenofibrate 145 mg Tablet TAKE ONE TABLET BY MOUTH At Bedtime Taking chlorproMAZINE HCl 100 mg Tablet TAKE ONE TABLET BY MOUTH EVERY 6 HOURS with THE 50mg TO = 150mg Taking Metoprolol Tartrate 50 MG Tablet 1 tablet with food Orally once a day Taking glipiZIDE 10 MG Tablet 1 tablet 30 minutes before breakfast or dinner Orally twice a day Taking Benztropine Mesylate 1 MG Tablet 1 tablet Orally twice daily Taking Perphenazine 2 MG Tablet half a tab Orally Twice a day Taking metFORMIN HCl 1000 MG Tablet 1 tablet with a meal Orally twice daily Medication List reviewed and reconciled with the patient * Allergies: H aldol: unknownyesAllergies Verified. Objective: * Examination: G eneral Examination: GENERAL APPEARANCE: i n no acute distress. Vital signs as documented.. NECK/THYROID: n o JVD. SKIN: w arm and dry, without overt rashes.. HEART: n otable for regular rhythym, normal sounds and absence of murmurs, rubs or gallops. LUNGS: L ungs clear. ABDOMEN: u nremarkable, no organomegaly , no masses, or abdominal aortic enlargement.. Plan: * Treatment: * Procedure Codes: 9 9309 SNF CARE SUBSEQ * Follow Up: 4 Weeks Billing Information: * Procedure Codes: 56080 SNF CARE SUBSEQ. * Electronic signature of [facility] marilee Almazan MD on 11/05/2024 at 03:08 PM CDT Sign off status: Pending * Provider: Lambert Almazan MD Date: 0 10/01/2024 Generated for Florian gomez/Marielena/Criss on: 0 11/05/2024 03:08 PM CDT
--- OUTSIDE RECORDS SUMMARY | 2024-11-05 15:08 | XMS_ITS | Patient Health Record ---
Author Organization [facility] Address [address] [place] [address] Care Team Providers Care Sapphire Stylus Grinder Name Role Phone Cam Almazan Primary Care Provider [phone] Allergies Allergen (clinical drug ingredient) Drug/Non Drug Allergy documented on EMR Reaction Allergy Type Onset Date Status Rosalva unknown Drug Allergy Active Reason For Referral No Information Medications Medication SIG (Take, Route, Frequency, Duration) Notes Start Date End Date Status chlorproMAZINE HCl 100 mg Tablet TAKE ONE TABLET BY MOUTH EVERY 6 HOURS with THE 50mg TO = 150mg; Duration: 30 Active Fenofibrate 145 mg Tablet TAKE ONE TABLE T BY MOUTH At Bedtime; Duration: 30 Active chlorproMAZINE HCl 25 mg Tablet TAKE ONE TABLET BY MOUTH EVERY 6 HOURS with 100 MG; Duration: 30 Active glipiZIDE 10 MG Tablet 1 tablet 30 minut es before breakfast or dinner Orally twice a day; Duration: 30 day(s) 03/20/2022 Active Metoprolol Tartrate 50 MG Tablet 1 tablet with food Orally once a day; Duration: 30 days 03/20/2022 Active Lantus 100 UNIT/ML Solution 70 units Subcutaneous two times a day every AM and HS; Duration: 30 days 03/20/2022 Active chlorproMAZINE HCl 50 mg Tablet TAKE ONE TABLET BY MOUTH EVERY 6 HOURS with 100mg [id number]; Duration: 30 Active Omeprazole 20 MG Capsule Delayed Release 1 capsule 30 minutes before morning meal Orally Once a day; Duration: 30 day(s) 03/20/2022 Active Doxycycline Hyclate 100 MG Capsule 1 capsule Orally Once a day Active Perphenazine 2 MG Tablet half a tab Oral ly Twice a day; Duration: 30 day(s) 03/20/2022 Active Aldactazide 25-25 MG Tablet 1 tablet Orally Once a day A ctive Benztropine Mesylate 1 MG Tablet 1 tablet Orally twice daily; Duration: 30 day(s) 03/20/2022 Activ e NovoLOG 100 unit/mL Solution Inject SUBCUTANEOUSLY PER sliding scale. max DOSE 15 UNITS BEFORE MEALS AND At Bedtime. FOUR TIMES DAILY; Duration: 16 Active Claritin 10 MG Tablet 1 tablet Orally Once a day Active metFORMIN HCl 1000 MG Tablet 1 tablet with a meal Orally twice daily; Duration: 30 day(s) 03/20/2022 Active Social History Social History Household: Social Info Question Answer Notes Household [facility] Marital status: single Problems Problem Type SNOMED Code ICD Code Onset Dates Problem Status W/U Status Risk Notes Problem Type II diabetes mellitus without complication (712994112) Type 2 diabetes mellitus without complications (E11.9) Active confirmed Problem Schizophrenia (53682011) Schizophrenia, unspecified (F20.9) Active confirmed Problem Gastroesophageal reflux disease (909803131) GERD (gastroesophagea l reflux disease) (K21.9) Active confirmed Encounters Encounter Location Date Provider Diagnosis [address] [address] 10/27/[address] [facility] [address] [facility] [address] [place] [address] 11/28/2023 Christopher Almazan Schizophrenia, unspecified F20.9 ; GERD (gastroesophageal reflux disease) K21.9 and Type 2 diabetes mellitus without complications E11.[address] [facility] [address] [facility] [address] [place] [address] 01/02/2024 Christopher Almazan Schizophrenia, unspecified F20.9 and GERD (gastroesophageal reflux disease) K21.9 [place] [id number] [place] [facility] [address] [place] [address] 01/30/2024 Christopher Almazan Schizophrenia, unspecified F20.9 ; GERD (gastroesophageal reflux disease) K21.9 and Type 2 diabetes mellitus without complications E11.9 [place] [address] [place] [facility] [address] [place] [address] 02/27/2024 Christopher Almazan Schizophrenia, unspecified F20.9 ; GERD (gastroesophageal reflux disease) K21.9 and Type 2 diabetes mellitus without complications E11.9 [place] [address] [place] [address] 04/02/2024 Christopher Almazan Schizophrenia, unspecified F20.9 ; GERD (gastroesophageal reflux disease) K21.9 and Type 2 diabetes mellitus without complications E11.9 [place] [address] [place] [address] 05/14/2024 Christopher Almazan Schizophrenia, unspecified F20.9 ; GERD (gastroesophageal reflux disease) K21.9 and Type 2 diabetes mellitus without complications E11.9 [place] [address] [place] [address] 06/04/2024 Christopher Almazan Schizophrenia, unspecified F20.9 ; GERD (gastroesophageal reflux disease) K21.9 and Type 2 diabetes mellitus without complications E11.9 [place] [address] [place] [address] 07/02/2024 Christopher Almazan Schizophrenia, unspecified F20.9 ; GERD (gastroesophageal reflux disease) K21.9 and Type 2 diabetes mellitus without complications E11.9 [place] [address] [place] [address] 07/30/2024 Christopher Almazan Schizophrenia, unspecified F20.9 ; GERD (gastroesophageal reflux disease) K21.9 and Type 2 diabetes mellitus without complications E11.9 [place] [address] [place] [address] 08/27/2024 Christopher Almazan Schizophrenia, unspecified F20.9 ; GERD (gastroesophageal reflux disease) K21.9 and Type 2 diabetes mellitus without complications E11.9 [place] [address] [place] [address] 10/01/2024 Christopher Almazan Assessments Encounter Date Diagnosis (ICD Code) Assessment Notes Treatment Notes Treatment Clinical Notes Section Notes 11/28/2023 Schizophrenia, unspecified (ICD-10 - F20.9) 01/02/2024 Schizophrenia, unspecified (ICD-10 - F20.9) 01/30/2024 Schizophrenia, unspecified (ICD-10 - F20.9) 02/27/2024 Schizophrenia, unspecified (ICD-10 - F20.9) 04/02/2024 Schizophrenia, unspecified (ICD-10 - F20.9) 05/14/2024 Schizophrenia, unspecified (ICD-10 - F20.9) 06/04/2024 Schizophrenia, unspecified (ICD-10 - F20.9) 07/02/2024 Schizophrenia, unspecified (ICD-10 - F20.9) Medications were reviewed. I will continue without changes. Nursing staff is to contact me with any symptoms arising. Orders signed and documented with nursing staff. Vitals taken and recorded at [facility]. 07/30/2024 Schizophrenia, unspecified (ICD-10 - F20.9) Medications were reviewed. I will continue without changes. Nursing staff is to contact me with any symptoms arising. Orders signed and documented with nursing staff. Vitals taken and recorded at [facility]. 08/27/2024 Schizophrenia, unspecified (ICD-10 - F20.9) Medications were reviewed. I will continue without changes. Nursing staff is to contact me with any symptoms arising. Orders signed and documented with nursing staff. Vitals taken and recorded at [facility]. 08/27/2024 GERD (gastroesophageal reflux disease) (ICD-10 - K21.9) 07/30/2024 GERD (gastroesophageal reflux disease) (ICD-10 - K21.9) 07/02/2024 GERD (gastroesophageal reflux disease) (ICD-10 - K21.9) 06/04/2024 GERD (gastroesophageal reflux disease) (ICD-10 - K21.9) 05/14/2024 GERD (gastroesophageal reflux disease) (ICD-10 - K21.9) 04/02/2024 GERD (gastroesophageal reflux disease) (ICD-10 - K21.9) 02/27/2024 GERD (gastroesophageal reflux disease) (ICD-10 - K21.9) 01/30/2024 GERD (gastroesophageal reflux disease) (ICD-10 - K21.9) 01/02/2024 GERD (gastroesophageal reflux disease) (ICD-10 - K21.9) 11/28/2023 GERD (gastroesophageal reflux disease) (ICD-10 - K21.9) 11/28/2023 Type 2 diabetes mellitus without complications (ICD-10 - E11.9) 01/30/2024 Type 2 diabetes mellitus without complications (ICD-10 - E11.9) 02/27/2024 Type 2 diabetes mellitus without complications (ICD-10 - E11.9) 04/02/2024 Type 2 diabetes mellitus without complications (ICD-10 - E11.9) 05/14/2024 Type 2 diabetes mellitus without complications (ICD-10 - E11.9) 06/04/2024 Type 2 diabetes mellitus without complications (ICD-10 - E11.9) 07/02/2024 Type 2 diabetes mellitus without complications (ICD-10 - E11.9) 07/30/2024 Type 2 diabetes mellitus without complications (ICD-10 - E11.9) 08/27/2024 Type 2 diabetes mellitus without complications (ICD-10 - E11.9) 10/01/2024 Other Medications were reviewed. I will continue without changes. Nursing staff is to contact me with any symptoms arising. Orders signed and documented with nursing staff. Vitals taken and recorded at [facility]. 11/28/2023 Other Medications reviewed, orders signed and documented with nursing staff. Vitals taken and recorded at [facility]. 01/02/2024 Other Medications reviewed, orders signed and documented with nursing staff. Vitals taken and recorded at [facility]. 01/30/2024 Other Medications reviewed, orders signed and documented with nursing staff. Vitals taken and recorded at [facility]. 02/27/2024 Other Medications reviewed, orders signed and documented with nursing staff. Vitals taken and recorded at [facility]. 04/02/2024 Other Medications reviewed, orders signed and documented with nursing staff. Vitals taken and recorded at [facility]. 05/14/2024 Other Medications reviewed, orders signed and documented with nursing staff. Vitals taken and recorded at [facility]. 06/04/2024 Other Medications reviewed, orders signed and documented with nursing staff. Vitals taken and recorded at [facility]. Plan Of Treatment Next Appt Details Provider Name:Cam Almazan, 11/05/2024 03:20:00 PM, [address], [place], [address], Insurance Providers Payer Name Payer Address Payer Phone Subscriber Number Group Number Insured Name Patient Relationship to Insured Coverage Start Date Coverage End Date [place] Medicaid [address] [place] [address] [id number] Morgan Lagunas Self - patient is the insured Medical (General) History Medical History History ICD Code Diabetes mellitus E11.9 GERD (gastroesophageal reflux disease) K 21.9 Schizophrenia, unspecified F20.9
[2024-11-05 15:11] VITALS: PULSE 103; RESP 18; TEMP 36.7; O2SAT 93; BMI 33.3
--- NOTE | 2024-11-05 15:39 | USCV_ITS ---
Morgan Lagunas Age: 44 Gender: M : 1980 Exam Date: 11/05/2024 16:13 Ordering Phys: Norah Ivory Technologist: USR Exam Location: [facility] [place]_ Indication: left leg swelling HISTORY: Lower extremity swelling-LEFT PROCEDURES: Venous duplex imaging was performed in only the left lower extremity. The following venous structures were evaluated: common femoral vein, profunda vein, proximal portion of the greater saphenous vein, superficial femoral vein, and the popliteal vein. In addition, the posterior tibial and peroneal trunk were evaluated. FINDINGS: No evidence of DVT seen in any vessel visualized at this time. CONCLUSIONS No evidence of left lower extremity DVT. Santiago Snyder MD (Electronically Signed) Final Date: 05 November 2024 17:01 S
--- NOTE | 2024-11-05 15:39 | XRR_ITS ---
PROCEDURE INFORMATION: Exam: XR Left Foot Exam date and time: 11/05/2024 3:48 PM Age: 44 years old Clinical indication: Pain; Foot; Left; Additional info: Swelling TECHNIQUE: Imaging protocol: Radiologic exam of the left foot. Views: 3 or more views. COMPARISON: No relevant prior studies available. FINDINGS: Bones/joints: There appears to be lateral dislocation of all metatarsals with respect to the tarsals as well as dorsal subluxation by approximately 1.2 cm. Apparent nondisplaced transverse fracture through the proximal 2nd metatarsal metaphysis. Multiple tiny calcific fragments at the 1st proximal intermetatarsal space, which shows 8 mm widening. Posterior and plantar calcaneal enthesophytes. Soft tissues: Diffuse soft tissue swelling. XR/XR foot LT min 3V* [id number] IMPRESSION: Homolateral Lisfranc fracture dislocation as above.
--- NOTE | 2024-11-05 15:39 | W.ED.EXTPRO ---
Documented by User: SANTOS Samano 11/05/24 17:39 HPI - Extremity Problem General: Chief complaint: Extremity Problem,Nontraumatic Stated complaint: LEFT LEG PAIN Time Seen by Provider: 11/05/24 15:28 Source: patient Mode of arrival: wheelchair Limitations: no limitations History of Present Illness: Patient is a 44 yo M here from [facility] for evaluation of left foot/leg swelling. Patient himself is a rather poor historian. He first tells me that he has not had any injury or trauma. States he was only sent here for an ultrasound of his leg to rule out a blood clot. He later tells me that he has rolled the foot multiple times over the course of the last few months. Patient has significant diabetic neuropathy. We were able to contact [facility] who tells us that patient does fall a lot with his neuropathy. He did have an episode on Friday where he got twisted up in his pant leg and injured the foot. They reportedly were trying to get an x-ray of the foot all week but were unable to thus sent him to the ED. [facility] states he often downplays his pain due to neuropathy. PMH significant for diabetes, hypercholesterolemia, obesity, schizophrenia, GERD. MD Complaint: extremity pain and extremity swelling Onset (ago): unknown Location: left and lower extremity Radiation: none Relieving factors: nothing Exacerbating factors: nothing Associated symptoms: Reports no associated symptoms; Deny chest pain or fever(s) Related Data Home Medications ?Medication ?Instructions ?Recorded ?Confirmed acetaminophen 325 mg tablet 325 mg PO QID PRN 08/04/19 08/09/24 (Tylenol) benztropine 1 mg tablet 1 mg PO BID 08/04/19 08/09/24 bisacodyl 5 mg tablet 5 mg PO DAILY 08/04/19 08/09/24 fenofibrate nanocrystallized 145 145 mg PO DAILY 08/04/19 08/09/24 mg tablet (Tricor) glipizide 10 mg tablet 10 mg PO BID 08/04/19 08/09/24 loratadine 10 mg tablet (Claritin) 10 mg PO DAILY 08/04/19 08/09/24 metformin 1,000 mg tablet 1,000 mg PO DAILY 08/04/19 08/09/24 aluminum-mag hydroxide-simethicone tab PO 08/19/23 08/09/24 200 mg-200 mg-20 mg chewable tablet chlorpromazine 50 mg tablet 150 mg PO BID 08/19/23 08/09/24 fluconazole 200 mg tablet mg PO 08/19/23 08/09/24 insulin glargine 100 unit/mL 70 unit SUBCUT .AT HS 08/19/23 11/05/24 subcutaneous solution (Lantus U-100 Insulin) insulin glargine 100 unit/mL 70 unit SUBCUT .in am 08/19/23 08/09/24 subcutaneous solution (Lantus U-100 Insulin) metoprolol tartrate 25 mg tablet 50 mg PO DAILY 08/19/23 08/09/24 omeprazole 20 mg capsule,delayed 20 mg PO 08/19/23 08/09/24 release perphenazine 2 mg tablet See Rx Instructions PO BID 08/19/23 08/09/24 doxycycline hyclate 100 mg capsule 100 mg PO BID 11/24/23 08/09/24 Previous Rx's ?Medication ?Instructions ?Recorded mupirocin 2 % topical ointment 1 applic topical TID #15 grams 06/22/24 ([facility]) Allergies Allergy/AdvReac Type Severity Reaction Status Date / Time haloperidol Allergy Unknown Verified 11/05/24 15:16 Review of Systems Const: Denies: fever(s), chills, body aches, fatigue or malaise Card: Denies: chest pain Resp: Denies: dyspnea Musc: Reports: extremity pain and extremity swelling; Denies: neck pain or back pain Neuro: Reports: sensory changes (chronic LE diabetic neuropathy) PFSH ED PFSH: Medical History Type 2 diabetes mellitus with other skin ulcer Unspecified open wound of unspecified back wall of thorax without penetration into thoracic cavity, initial encounter Gastro-esophageal reflux disease without esophagitis Allergic rhinitis, unspecified Type 2 diabetes mellitus without complications Pure hypercholesterolemia, unspecified BETTY (obstructive sleep apnea) Social History Smoking and tobacco/nicotine status: current every day tobacco/nicotine user cigarettes Quit status (tobacco/nicotine): not considering quitting Second hand smoke exposure: No Caregiver/support person: Yes Lives independently: No Housing: Prison Marital status: Single service: No Current occupational status: disabled Current occupational exposures/hazards: No Leisure activites: music and games Sexually active: No Do you think of yourself as: Straight/Heterosexual Current gender identity: Male Special lyle needs: No Physical Exam Const: COMMON NORMALS: no acute distress, alert and well nourished GENERAL APPEARANCE: cooperative NUTRITIONAL APPEARANCE: obese OTHER: patient is a poor historian Resp: COMMON NORMALS: normal respiratory effort and clear to auscultation bilaterally AUSCULTATION: clear to auscultation bilaterally Cardio: COMMON NORMALS: regular rate and regular rhythm RATE: regular rate RHYTHM: regular rhythm Extremity: COMMON NORMALS: capillary refill normal and no calf tenderness GENERAL: Yes normal exam except as noted LEFT LOWER EXTREMITY: Yes foot & digits OTHER: pt has chronic significant neuropathy to bilateral LE; pt does have edema to L lower leg when compared to R and has significant edema throughout L foot with deformity and ecchymosis; vascularly intact Neuro: COMMON NORMALS: moves all extremities, no focal motor deficits and no sensory deficits noted SENSORIUM/ORIENTATION: Yes alert Course Consultations: Consultation #1: Dr. Zelaya-consulted on patient here in ED; recommending admission to hospitalist and he will take to OR when edema improves Consultation #2: Dr. Roth-accepting hospitalization Vital Signs: Vital signs: Vital Signs Temperature 98.3 F 11/06/24 05:02 Pulse Rate 74 11/06/24 05:02 Respiratory Rate 19 H 11/06/24 05:02 Blood Pressure 118/68 11/06/24 05:02 Pulse Oximetry 96 11/06/24 05:02 Oxygen Delivery Me thod Room Air 11/05/24 20:12 MDM - Extremity (Nontraumatic) Medical Decision Making Patient has a complete Lisfranc fracture/dislocation that will require surgery. He has been consulted on by Dr. Zelaya who is requesting admission and will take to OR once edema subsides. Medical Records I reviewed the patient's medical records. Lab Data I reviewed the patient's lab results. 11/05/24 16:37 11/05/24 16:37 Radiology Impressions Foot X-Ray 11/05/24 15:39 IMPRESSION: Homolateral Lisfranc fracture dislocation as above. Laboratory Results WBC 10.63 10^3/uL (3.29-11.43) 11/05/24 16:37 RBC 4.58 10^6/uL (3.85-5.65) 11/05/24 16:37 Hgb 12.00 g/dL (11.27-16.99) 11/05/24 16:37 Hct 37.4 % (37-53) 11/05/24 16:37 MCV 81.7 fl (82-101) L 11/05/24 16:37 MCH 26.2 pg (27-33) L 11/05/24 16:37 MCHC 32.1 g/dL (30-55) 11/05/24 16:37 RDW 14.8 % (12.1-15.1) 11/05/24 16:37 Plt Count 288 10^3/cmm (157-399) 11/05/24 16:37 MPV 8.6 fL (7.4-10.4) 11/05/24 16:37 Neut % (Auto) 63.7 % 11/05/24 16:37 Lymph % (Auto) 25.3 % 11/05/24 16:37 Converse % (Auto) 7.0 % 11/05/24 16:37 Eos % (Auto) 2.8 % 11/05/24 16:37 Baso % (Auto) 0.4 % 11/05/24 16:37 Neut # (Auto) 6.77 10^3/uL (1.8-7.7) 11/05/24 16:37 Lymph # (Auto) 2.7 10^3/uL (0.8-4.8) 11/05/24 16:37 Converse # (Auto) 0.7 10^3/uL (0.2-0.9) 11/05/24 16:37 Eos # (Auto) 0.3 10^3/uL (0.0-0.8) 11/05/24 16:37 Baso # (Auto) 0.0 10^3/uL (0.0-0.1) 11/05/24 16:37 Nucleated RBC % (auto) 0 % 11/05/24 16:37 Nucleated RBCs # 0.0 /100WBC 11/05/24 16:37 Sodium 133 mmol/L (136-145) L 11/05/24 16:37 Potassium 4.4 mmol/L (3.5-5.1) 11/05/24 16:37 Chloride 94 mmol/L (98-107) L 11/05/24 16:37 Carbon Dioxide 26 mmol/L (22-29) 11/05/24 16:37 Anion Gap 17.4 (5-19) 11/05/24 16:37 BUN 14 mg/dL (6-20) 11/05/24 16:37 Creatinine 1.0 mg/dL (0.7-1.2) 11/05/24 16:37 GFR Calculation 80.8 mL/min (90-130) L 11/05/24 16:37 Glucose 244 mg/dL (65-115) H 11/05/24 16:37 Estimat Average Glucose 200 11/05/24 16:37 Hemoglobin A1c 8.6 % (4.0-6.0) H 11/05/24 16:37 Calculated Osmolality 285 mOsm/kg (285-295) 11/05/24 16:37 Calcium 9.6 mg/dL (8.5-10.5) 11/05/24 16:37 Total Bilirubin 0.2 mg/dL (0.15-1.2) 11/05/24 16:37 AST 18 U/L (0-40) 11/05/24 16:37 ALT 18 U/L (0-41) 11/05/24 16:37 Alkaline Phosphatase 70 U/L (40-130) 11/05/24 16:37 Total Protein 6.8 g/dL (6.6-8.7) 11/05/24 16:37 Albumin 3.5 g/dL (3.5-5.2) 11/05/24 16:37 Globulin 3.3 g/dL (1.3-4.6) 11/05/24 16:37 All radiology interpretation(s) finalized by discharge Discharge Plan Discharge Patient Disposition: Admitted As Inpatient Admit Provider: Santiago Roth Clinical Impression: Lisfranc dislocation Condition: Stable Coding Level of Care Code ED Refinery Operator Assistant for Chg Fwd Documented by User: Jorge Castro, 11/06/24 06:08 HPI - Extremity Problem General: Chief complaint: Extremity Problem,Nontraumatic Stated complaint: LEFT LEG PAIN Time Seen by Provider: 11/05/24 15:28 Related Data Home Medications ?Medication ?Instructions ?Recorded ?Confirmed acetaminophen 325 mg tablet 325 mg PO QID PRN 08/04/19 08/09/24 (Tylenol) benztropine 1 mg tablet 1 mg PO BID 08/04/19 08/09/24 bisacodyl 5 mg tablet 5 mg PO DAILY 08/04/19 08/09/24 fenofibrate nanocrystallized 145 145 mg PO DAILY 08/04/19 08/09/24 mg tablet (Tricor) glipizide 10 mg tablet 10 mg PO BID 08/04/19 08/09/24 loratadine 10 mg tablet (Claritin) 10 mg PO DAILY 08/04/19 08/09/24 metformin 1,000 mg tablet 1,000 mg PO DAILY 08/04/19 08/09/24 aluminum-mag hydroxide-simethicone tab PO 08/19/23 08/09/24 200 mg-200 mg-20 mg chewable tablet chlorpromazine 50 mg tablet 150 mg PO BID 08/19/23 08/09/24 fluconazole 200 mg tablet mg PO 08/19/23 08/09/24 insulin glargine 100 unit/mL 70 unit SUBCUT .AT HS 08/19/23 11/05/24 subcutaneous solution (Lantus U-100 Insulin) insulin glargine 100 unit/mL 70 unit SUBCUT .in am 08/19/23 08/09/24 subcutaneous solution (Lantus U-100 Insulin) metoprolol tartrate 25 mg tablet 50 mg PO DAILY 08/19/23 08/09/24 omeprazole 20 mg capsule,delayed 20 mg PO 08/19/23 08/09/24 release perphenazine 2 mg tablet See Rx Instructions PO BID 08/19/23 08/09/24 doxycycline hyclate 100 mg capsule 100 mg PO BID 11/24/23 08/09/24 Previous Rx's ?Medication ?Instructions ?Recorded mupirocin 2 % topical ointment 1 applic topical TID #15 grams 06/22/24 ([facility]) Allergies Allergy/AdvReac Type Severity Reaction Status Date / Time haloperidol Allergy Unknown Verified 11/05/24 15:16 PFSH ED PFSH: Medical History Type 2 diabetes mellitus with other skin ulcer Unspecified open wound of unspecified back wall of thorax without penetration into thoracic cavity, initial encounter Gastro-esophageal reflux disease without esophagitis Allergic rhinitis, unspecified Type 2 diabetes mellitus without complications Pure hypercholesterolemia, unspecified BETTY (obstructive sleep apnea) Social History Smoking and tobacco/nicotine status: current every day tobacco/nicotine user cigarettes Quit status (tobacco/nicotine): not considering quitting Second hand smoke exposure: No Caregiver/support person: Yes Lives independently: No Housing: Prison Marital status: Single service: No Current occupational status: disabled Current occupational exposures/hazards: No Leisure activites: music and games Sexually active: No Do you think of yourself as: Straight/Heterosexual Current gender identity: Male Special lyle needs: No Course Vital Signs: Vital signs: Vital Signs Temperature 98.3 F 11/06/24 05:02 Pulse Rate 74 11/06/24 05:02 Respiratory Rate 19 H 11/06/24 05:02 Blood Pressure 118/68 11/06/24 05:02 Pulse Oximetry 96 11/06/24 05:02 Oxygen Delivery Me thod Room Air 11/05/24 20:12 MDM - Extremity (Nontraumatic) Medical Decision Making Patient has a complete Lisfranc fracture/dislocation that will require surgery. He has been consulted on by Dr. Zelaya who is requesting admission and will take to OR once edema subsides. Chart reviewed and patient discussed with midlevel. Agree with assessment and plan. Lab Data 11/05/24 16:37 11/05/24 16:37 Radiology Impressions Foot X-Ray 11/05/24 15:39 IMPRESSION: Homolateral Lisfranc fracture dislocation as above. Laboratory Results WBC 10.63 10^3/uL (3.29-11.43) 11/05/24 16:37 RBC 4.58 10^6/uL (3.85-5.65) 11/05/24 16:37 Hgb 12.00 g/dL (11.27-16.99) 11/05/24 16:37 Hct 37.4 % (37-53) 11/05/24 16:37 MCV 81.7 fl (82-101) L 11/05/24 16:37 MCH 26.2 pg (27-33) L 11/05/24 16:37 MCHC 32.1 g/dL (30-55) 11/05/24 16:37 RDW 14.8 % (12.1-15.1) 11/05/24 16:37 Plt Count 288 10^3/cmm (157-399) 11/05/24 16:37 MPV 8.6 fL (7.4-10.4) 11/05/24 16:37 Neut % (Auto) 63.7 % 11/05/24 16:37 Lymph % (Auto) 25.3 % 11/05/24 16:37 Converse % (Auto) 7.0 % 11/05/24 16:37 Eos % (Auto) 2.8 % 11/05/24 16:37 Baso % (Auto) 0.4 % 11/05/24 16:37 Neut # (Auto) 6.77 10^3/uL (1.8-7.7) 11/05/24 16:37 Lymph # (Auto) 2.7 10^3/uL (0.8-4.8) 11/05/24 16:37 Converse # (Auto) 0.7 10^3/uL (0.2-0.9) 11/05/24 16:37 Eos # (Auto) 0.3 10^3/uL (0.0-0.8) 11/05/24 16:37 Baso # (Auto) 0.0 10^3/uL (0.0-0.1) 11/05/24 16:37 Nucleated RBC % (auto) 0 % 11/05/24 16:37 Nucleated RBCs # 0.0 /100WBC 11/05/24 16:37 Sodium 133 mmol/L (136-145) L 11/05/24 16:37 Potassium 4.4 mmol/L (3.5-5.1) 11/05/24 16:37 Chloride 94 mmol/L (98-107) L 11/05/24 16:37 Carbon Dioxide 26 mmol/L (22-29) 11/05/24 16:37 Anion Gap 17.4 (5-19) 11/05/24 16:37 BUN 14 mg/dL (6-20) 11/05/24 16:37 Creatinine 1.0 mg/dL (0.7-1.2) 11/05/24 16:37 GFR Calculation 80.8 mL/min (90-130) L 11/05/24 16:37 Glucose 244 mg/dL (65-115) H 11/05/24 16:37 Estimat Average Glucose 200 11/05/24 16:37 Hemoglobin A1c 8.6 % (4.0-6.0) H 11/05/24 16:37 Calculated Osmolality 285 mOsm/kg (285-295) 11/05/24 16:37 Calcium 9.6 mg/dL (8.5-10.5) 11/05/24 16:37 Total Bilirubin 0.2 mg/dL (0.15-1.2) 11/05/24 16:37 AST 18 U/L (0-40) 11/05/24 16:37 ALT 18 U/L (0-41) 11/05/24 16:37 Alkaline Phosphatase 70 U/L (40-130) 11/05/24 16:37 Total Protein 6.8 g/dL (6.6-8.7) 11/05/24 16:37 Albumin 3.5 g/dL (3.5-5.2) 11/05/24 16:37 Globulin 3.3 g/dL (1.3-4.6) 11/05/24 16:37 Discharge Plan Discharge Patient Disposition: Admitted As Inpatient Admit Provider: Santiago Roth Clinical Impression: Lisfranc dislocation Condition: Stable Coding Level of Care Code ED Refinery Operator Assistant for Jeni Jefferson
[2024-11-05 16:47] LABS: Hematocrit 37.4 % (37-53); Hemoglobin 12.00 g/dL (11.27-16.99); Mean Corpuscular HGB Conc 32.1 g/dL (30-55); Mean Corpuscular Hemoglobin 26.2 pg (27-33); Mean Corpuscular Volume 81.7 fl (82-101); Nucleated Red Blood Cells % 0 %; Platelet Count 288 10^3/cmm (157-399); Red Blood Count 4.58 10^6/uL (3.85-5.65); White Blood Count 10.63 10^3/uL (3.29-11.43)
--- NOTE | 2024-11-05 16:49 | PM.CONSULT ---
Providers/Reason For Consult Consulting Physician/Specialty*: Eric Zelaya D.P.M. Reason for Consult*: Left foot complete homolateral Lisfranc dislocation. Primary Care Provider: Phillip Almazan MD History of Present Illness History of Present Illness Morgan Lagunas III is a 44 year old diabetic male with complete homolateral Lisfranc dislocation of the left foot. Patient is a poor historian. He states he is unaware of injury or trauma to the left foot. Of note he has diabetes with significant peripheral neuropathy. Per his report he thinks that his left foot has been excessively swollen for the past 2 to 3 weeks. He was directed to the emergency department from his care facility he resides at [facility] due to swelling of the left lower extremity and was directed for a DVT rule out. X-ray revealed dislocation of the left Lisfranc joint. Patient has poor insight on his diabetes, cannot recall where his blood sugars run or if he even takes medication for it. He is an everyday smoker smokes approximately 1 pack/day. Review of Systems General: Reports: 10 or more systems reviewed and unremarkable except in HPI and below Const: Denies: fever(s) or chills Card: Denies: chest pain or palpitations Resp: Denies: productive cough GI: Denies: abdominal pain, nausea or vomiting : Denies: flank pain Musc: Reports: extremity swelling, joint pain, joint stiffness, limited range of motion and deformity Skin/Breast: Reports: nail changes and change in hair; Denies: rash or sores Neuro: Reports: numbness in extremities, sensory changes and difficulty walking Psych: Denies: suicidal ideation Jassi/Lymph: Denies: easy bruising Medications/Allergies Home Medications ?Medication ?Instructions ?Recorded ?Confirmed ?Last Taken ?Type acetaminophen 325 mg tablet 325 mg PO QID PRN 08/04/19 08/09/24 Unknown History (Tylenol) benztropine 1 mg tablet 1 mg PO BID 08/04/19 08/09/24 Unknown History bisacodyl 5 mg tablet 5 mg PO DAILY 08/04/19 08/09/24 Unknown History fenofibrate nanocrystallized 145 145 mg PO DAILY 08/04/19 08/09/24 Unknown History mg tablet (Tricor) glipizide 10 mg tablet 10 mg PO BID 08/04/19 08/09/24 Unknown History loratadine 10 mg tablet (Claritin) 10 mg PO DAILY 08/04/19 08/09/24 Unknown History metformin 1,000 mg tablet 1,000 mg PO DAILY 08/04/19 08/09/24 Unknown History aluminum-mag hydroxide-simethicone tab PO 08/19/23 08/09/24 Unknown History 200 mg-200 mg-20 mg chewable tablet chlorpromazine 50 mg tablet 150 mg PO BID 08/19/23 08/09/24 Unknown History fluconazole 200 mg tablet mg PO 08/19/23 08/09/24 Unknown History insulin glargine 100 unit/mL 70 unit SUBCUT .AT HS 08/19/23 08/09/24 Unknown History subcutaneous solution (Lantus U-100 Insulin) insulin glargine 100 unit/mL 70 unit SUBCUT .in am 08/19/23 08/09/24 Unknown History subcutaneous solution (Lantus U-100 Insulin) metoprolol tartrate 25 mg tablet 50 mg PO DAILY 08/19/23 08/09/24 Unknown History omeprazole 20 mg capsule,delayed 20 mg PO 08/19/23 08/09/24 Unknown History release perphenazine 2 mg tablet See Rx Instructions PO BID 08/19/23 08/09/24 Unknown History doxycycline hyclate 100 mg capsule 100 mg PO BID 11/24/23 08/09/24 Unknown History mupirocin 2 % topical ointment 1 applic topical TID #15 grams 06/22/24 08/09/24 Unknown Rx ([facility]) Allergies Allergy/AdvReac Type Severity Reaction Status Date / Time haloperidol Allergy Unknown Verified 11/05/24 15:16 PFSH Acute PFSH: Medical History (Updated 11/05/24 @ 18:33 by Eric Zelaya DPM) Type 2 diabetes mellitus with other skin ulcer Unspecified open wound of unspecified back wall of thorax without penetration into thoracic cavity, initial encounter Gastro-esophageal reflux disease without esophagitis Allergic rhinitis, unspecified Type 2 diabetes mellitus without complications Pure hypercholesterolemia, unspecified BETTY (obstructive sleep apnea) Social History Smoking and tobacco/nicotine status: current every day tobacco/nicotine user cigarettes Quit status (tobacco/nicotine): not considering quitting Second hand smoke exposure: No Caregiver/support person: Yes Lives independently: No Housing: [facility] Marital status: Single service: No Current occupational status: disabled Current occupational exposures/hazards: No Leisure activites: music and games Sexually active: No Do you think of yourself as: Straight/Heterosexual Current gender identity: Male Special lyle needs: No Vitals/I&O/Wt Last Vital Signs Temp 98.1 F 11/05/24 15:11 Pulse 103 H 11/05/24 15:11 Resp 18 11/05/24 15:11 Pulse Ox 93 11/05/24 15:11 O2 Del Method Room Air 11/05/24 15:11 11/05/24 11/05/24 11/05/24 06:59 14:59 22:59 Intake Total 0 / 0 Balance 0 / 0 Weight last 48 hrs Weight 246 lb Physical Exam Narrative: GENERAL: Patient is alert and oriented ?3 and in no acute distress. The following is a focused bilateral lower extremity exam. VASCULAR: Dorsalis pedis palpable bilaterally. Posterior tibial arteries palpable. Capillary refill time less than 3 seconds to the distal hallux bilaterally. Calf is supple and nontender proximally and distally. +3 pitting edema to the left foot and ankle. +1 pitting edema to the right foot and ankle. NEUROLOGICAL: Protective sensation intact 0/10 sites, tested with Cora Jillian monofilament to bilateral feet. DERMATOLOGICAL: No open wounds to the bilateral lower extremity. Minimal ecchymosis to the left foot, no fracture blister. MUSCULOSKELETAL: Mild tenderness to palpation at the left foot. No gross deformity appreciated when visualizing the left foot likely secondary to the extent of edema there is no tenting of the skin or bony prominences. Patient able to wiggle toes and dorsiflex and plantarflex bilateral foot and ankle without guarding. Data 11/05/24 16:37 11/05/24 16:37 A&P Assessment and plan 1. Diabetic peripheral neuropathy associated with type 2 diabetes mellitus: 2. Dislocation of tarsometatarsal joint of left foot, initial encounter: 3. Closed displaced fracture of first metatarsal bone of left foot, initial encounter: 4. Closed displaced fracture of second metatarsal bone of left foot, initial encounter: 5. Closed displaced fracture of third metatarsal bone of left foot, initial encounter: 6. Closed nondisplaced fracture of fourth metatarsal bone of left foot, initial encounter: 7. Cuneiform fracture, foot: 8. 3+ pitting edema: 9. Closed nondisplaced fracture of fifth metatarsal bone of left foot, initial encounter: Plan: 44-year-old male presents with complete homolateral left Lisfranc fracture dislocation with unknown date of injury. High risk injury with comorbidity of uncontrolled diabetes and current pack-a-day smoker. - +3 pitting edema to the left foot requires improvement prior to surgical intervention due to increased risk of dehiscence and infection. - Assessment in emergency room revealed palpable pedal pulses, absent protective sensation bilaterally secondary to diabetic neuropathy. - Pending A1c, will guide open reduction with internal fixation versus closed reduction with percutaneous pinning pending A1c status. - Recommend admission to hospital service for neurovascular monitoring and medical optimizing prior to surgical intervention. - Strict nonweightbearing left foot. - Elevate left foot. Will proceed with surgical intervention once edema is improved Podiatry will follow. PDMP PDMP Reviewed: Not Reviewed Coding Level of Care Code Acute Code for Chg Fwd Diagnoses Diabetic peripheral neuropathy associated with type 2 diabetes mellitus E11.42 Dislocation of tarsometatarsal joint of left foot, initial encounter S93.325A Encounter type: initial encounter Laterality: left Closed displaced fracture of first metatarsal bone of left foot, initial encounter S92.312A Encounter type: initial encounter Fracture type: closed Fracture alignment: displaced Closed displaced fracture of second metatarsal bone of left foot, initial encounter S92.322A Encounter type: initial encounter Fracture type: closed Fracture alignment: displaced Closed displaced fracture of third metatarsal bone of left foot, initial encounter S92.332A Encounter type: initial encounter Fracture type: closed Fracture alignment: displaced Closed nondisplaced fracture of fourth metatarsal bone of left foot, initial encounter S92.345A Encounter type: initial encounter Fracture type: closed Fracture alignment: nondisplaced Cuneiform fracture, foot 3+ pitting edema R60.9 Closed nondisplaced fracture of fifth metatarsal bone of left foot, initial encounter S92.355A Encounter type: initial encounter
[2024-11-05 17:06] LABS: Alanine Aminotransferase 18 U/L (0-41); Albumin Level 3.5 g/dL (3.5-5.2); Alkaline Phosphatase 70 U/L (40-130); Anion Gap 17.4 (5-19); Aspartate Amino Transferase 18 U/L (0-40); Blood Urea Nitrogen 14 mg/dL (6-20); Calcium 9.6 mg/dL (8.5-10.5); Carbon Dioxide 26 mmol/L (22-29); Chloride 94 mmol/L (98-107); Creatinine Clr Calc Pharmacy 120.3249; Globulin 3.3 g/dL (1.3-4.6); Glucose 244 mg/dL (65-115); Osmolality Calculated 285 mOsm/kg (285-295); Potassium 4.4 mmol/L (3.5-5.1); Sodium 133 mmol/L (136-145); Total Protein 6.8 g/dL (6.6-8.7)
[2024-11-05 18:10] VITALS: BP 148/85; PULSE 100; RESP 17; O2SAT 98
--- NOTE | 2024-11-05 18:11 | PC.NURSE ---
provided pt with x2 blankets, lights dimmed. pt denies any further needs
--- NOTE | 2024-11-05 19:31 | PM.HP ---
Providers/Chief Complaint Admitting Physician: Santiago Roth MD Primary Care Provider: Phillip Almazan MD Chief Complaint: LEFT LEG PAIN History of Present Illness Morgan Lagunas III is a 44 year old male with history of schizophrenia states he lives at [facility] for the last 4 to 5 years. Previous to that he lived in another facility for 4 years and prior to that he lived in a house with some people that he did not get along with. He describes it literally as they were getting along please came and asked the other person if they wanted to go somewhere else and they said no and then they asked him if he wanted to go somewhere else and he said yes. Patient thinks he broke his foot maybe a month or 2 ago. He states that he fell down about 2 months ago and his ankle swelled and it hurts a little to walk but he says he is okay. He describes it as 4-08/28 Patient admits to diabetes and states nurse gives him the insulin. He does take some pills but notes he does not know what those are. He knows he is in [place] at a Review of Systems Narrative: General No fevers chills has had weight gain but no weight loss states he is on some shot to help him lose weight but still feels very hungry Cardiovascular no chest pain or palpitations he does have edema also has dyspnea on exertion Respiratory no shortness of breath cough or wheezing GI no nausea vomiting diarrhea he has constipation with bowel movements every 2 to 3 days no dysuria hematuria nocturia 4-5 times at night and urinary urgency Neuro no seizures strokes Hematologic no history of DVT Malignancy history negative Psychiatric he describes hearing voices at a younger age but no longer. States that used to try to make him get the [employer] [employer] but now he gets along with everybody Medications/Allergies Home Medications ?Medication ?Instructions ?Recorded ?Confirmed ?Last Taken ?Type acetaminophen 325 mg tablet 325 mg PO QID PRN 08/04/19 08/09/24 Unknown History (Tylenol) benztropine 1 mg tablet 1 mg PO BID 08/04/19 08/09/24 Unknown History bisacodyl 5 mg tablet 5 mg PO DAILY 08/04/19 08/09/24 Unknown History fenofibrate nanocrystallized 145 145 mg PO DAILY 08/04/19 08/09/24 Unknown History mg tablet (Tricor) glipizide 10 mg tablet 10 mg PO BID 08/04/19 08/09/24 Unknown History loratadine 10 mg tablet (Claritin) 10 mg PO DAILY 08/04/19 08/09/24 Unknown History metformin 1,000 mg tablet 1,000 mg PO DAILY 08/04/19 08/09/24 Unknown History aluminum-mag hydroxide-simethicone tab PO 08/19/23 08/09/24 Unknown History 200 mg-200 mg-20 mg chewable tablet chlorpromazine 50 mg tablet 150 mg PO BID 08/19/23 08/09/24 Unknown History fluconazole 200 mg tablet mg PO 08/19/23 08/09/24 Unknown History insulin glargine 100 unit/mL 70 unit SUBCUT .AT HS 08/19/23 08/09/24 Unknown History subcutaneous solution (Lantus U-100 Insulin) insulin glargine 100 unit/mL 70 unit SUBCUT .in am 08/19/23 08/09/24 Unknown History subcutaneous solution (Lantus U-100 Insulin) metoprolol tartrate 25 mg tablet 50 mg PO DAILY 08/19/23 08/09/24 Unknown History omeprazole 20 mg capsule,delayed 20 mg PO 08/19/23 08/09/24 Unknown History release perphenazine 2 mg tablet See Rx Instructions PO BID 08/19/23 08/09/24 Unknown History doxycycline hyclate 100 mg capsule 100 mg PO BID 11/24/23 08/09/24 Unknown History mupirocin 2 % topical ointment 1 applic topical TID #15 grams 06/22/24 08/09/24 Unknown Rx (Centany) Allergies Allergy/AdvReac Type Severity Reaction Status Date / Time haloperidol Allergy Unknown Verified 11/05/24 15:16 PFSH Acute PFSH: Medical History (Updated 11/05/24 @ 19:39 by Santiago Roth MD) Obesity (BMI 30.0-34.9) Schizophrenia Type 2 diabetes mellitus with other skin ulcer Unspecified open wound of unspecified back wall of thorax without penetration into thoracic cavity, initial encounter Gastro-esophageal reflux disease without esophagitis Allergic rhinitis, unspecified Type 2 diabetes mellitus without complications Pure hypercholesterolemia, unspecified BETTY (obstructive sleep apnea) Social History Smoking and tobacco/nicotine status: current every day tobacco/nicotine user cigarettes Quit status (tobacco/nicotine): not considering quitting Second hand smoke exposure: No Caregiver/support person: Yes Lives independently: No Housing: Senior Living Marital status: Single service: No Current occupational status: disabled Current occupational exposures/hazards: No Leisure activites: music and games Sexually active: No Do you think of yourself as: Straight/Heterosexual Current gender identity: Male Special lyle needs: No Vitals/I&O/Wt Last Vital Signs Temp 98.1 F 11/05/24 15:11 Pulse 100 11/05/24 18:10 Resp 17 11/05/24 18:10 BP 148/85 11/05/24 18:10 Pulse Ox 98 11/05/24 18:10 O2 Del Method Room Air 11/05/24 15:11 11/05/24 11/05/24 11/05/24 06:59 14:59 22:59 Intake Total 0 / 0 Balance 0 / 0 Weight last 48 hrs Weight 111.584 kg Physical Exam Narrative: General well-developed well-nourished obese man tall stature CV regular rate and rhythm Lungs clear to auscultation bilaterally Abdomen obese soft nontender Back no flank tenderness Calves trace edema left foot is edematous see images 3+ pitting edema Psych patient is cooperative Extremity: NARRATIVE EXTREMITY EXAM: OTHER: Data 11/05/24 16:37 11/05/24 16:37 A&P Assessment and plan 1. Foot fracture, left: I spoke with Dr. Eric Zelaya who is planning to wrap the foot with 2 layer wrap and thinks the swelling will go down pretty quickly with anticipated surgery on Friday. Neuro vascular checking will be ordered by him 2. Lisfranc dislocation: As above 3. Schizophrenia: Patient be resumed on his home psychiatric medication 4. Diabetic peripheral neuropathy associated with type 2 diabetes mellitus: Patient will have pain meds ordered and also gabapentin 5. BETTY (obstructive sleep apnea): Patient denied sleep apnea but is in his past medical history 6. Obesity (BMI 30.0-34.9): Patient reports unwanted weight gain and that he is on a weight loss shot. He is willing to take a low calorie weight loss diet as discussed today PDMP PDMP Reviewed: Not Reviewed Attestations Medical Necessity Statement*: Patient is admitted to the hospital with a high risk dislocation fracture of his foot and will require greater than 2 midnights in hospital Time Spent in Patient Care: 70 Coding Level of Care Code 02161 Diagnoses Foot fracture, left S92.902A Lisfranc dislocation S93.326A Schizophrenia F20.9 Diabetic peripheral neuropathy associated with type 2 diabetes mellitus E11.42 BETTY (obstructive sleep apnea) G47.33 Obesity (BMI 30.0-34.9) E66.811 Time Spent (min) 70
[2024-11-05 20:12] VITALS: BMI 45.4
[2024-11-05 20:25] LABS: Estmated Average Glucose 200; Hemoglobin A1C 8.6 % (4.0-6.0)
[2024-11-05 21:14] VITALS: BP 115/82; PULSE 82; RESP 19; TEMP 36.8; O2SAT 95
[2024-11-05] MEDS: insulin glargine 100 units/1 mL 70 UNIT SUBCUT (22:38)
[2024-11-06 00:20] VITALS: BP 118/78; PULSE 84; RESP 18; TEMP 36.8; O2SAT 95
[2024-11-06 05:02] VITALS: BP 118/68; PULSE 74; RESP 19; TEMP 36.8; O2SAT 96
[2024-11-06] MEDS: insulin glargine 100 units/1 mL 70 UNIT SUBCUT ×2 (05:51→20:31)
[2024-11-06 07:32] VITALS: BP 153/99; PULSE 102; RESP 18; TEMP 36.7; O2SAT 93
--- NOTE | 2024-11-06 08:00 | P.PN_ITS ---
Subjective 2 Subjective: Patient seen bedside this a.m., denies any acute events overnight. Tolerating regular diet. Denies any specific complaints. Vitals/I&O/Wt Last Vital Signs Temp 98.0 F 11/06/24 07:32 Pulse 102 H 11/06/24 07:32 Resp 18 11/06/24 07:32 BP 153/99 11/06/24 07:32 Pulse Ox 93 11/06/24 07:32 O2 Del Method Room Air 11/06/24 07:32 11/05/24 11/06/24 11/06/24 22:59 06:59 14:59 Intake Total 600 / 600 240 / 840 Output Total 2000 / 1999 600 / 600 Balance 600 / 600 -1760 / -1160 -600 / -600 Weight last 48 hrs Weight 335 lb 6 oz Weight 335 lb 6.4 oz Weight 246 lb Physical Exam 2 Narrative: GENERAL: Patient is alert and oriented ?3 and in no acute distress. The following is a focused bilateral lower extremity exam. VASCULAR: Dorsalis pedis palpable bilaterally. Posterior tibial arteries palpable. Capillary refill time less than 3 seconds to the distal hallux bilaterally. Calf is supple and nontender proximally and distally. +3 pitting edema to the left foot and ankle. +1 pitting edema to the right foot and ankle. NEUROLOGICAL: Protective sensation intact 0/10 sites, tested with [place] Jillian monofilament to bilateral feet. DERMATOLOGICAL: No open wounds to the bilateral lower extremity. Minimal ecchymosis to the left foot, no fracture blister. MUSCULOSKELETAL: Mild tenderness to palpation at the left foot. No gross deformity appreciated when visualizing the left foot likely secondary to the extent of edema there is no tenting of the skin or bony prominences. Patient able to wiggle toes and dorsiflex and plantarflex bilateral foot and ankle without guarding. Data 11/05/24 16:37 11/05/24 16:37 A&P Assessment and plan 1. Diabetic peripheral neuropathy associated with type 2 diabetes mellitus: 2. Dislocation of tarsometatarsal joint of left foot, initial encounter: 3. Closed displaced fracture of first metatarsal bone of left foot, initial encounter: 4. Closed displaced fracture of second metatarsal bone of left foot, initial encounter: 5. Closed displaced fracture of third metatarsal bone of left foot, initial encounter: 6. Closed nondisplaced fracture of fourth metatarsal bone of left foot, initial encounter: 7. Cuneiform fracture, foot: 8. 3+ pitting edema: 9. Closed nondisplaced fracture of fifth metatarsal bone of left foot, initial encounter: Plan: 44-year-old male presents with complete homolateral left Lisfranc fracture dislocation with unknown date of injury. High risk injury with comorbidity of uncontrolled diabetes and current pack-a-day smoker. - Improving edema, 2 layer wrap applied yesterday and changed today. - Assessment in emergency room revealed palpable pedal pulses, absent protective sensation bilaterally secondary to diabetic neuropathy. - A1c 8.6 discussed with patient closed reduction with percutaneous pinning versus ORIF versus arthrodesis, ultimately arthrodesis would be as most definitive and functional option all of which have increased risks for delayed healing, infection and amputation due to elevated A1c. Patient wishes to proceed with arthrodesis if this can be accomplished during this hospitalization. - Patient continues to have palpable pedal pulses of the left foot with brisk capillary refill. - Strict nonweightbearing left foot. - Elevate left foot. New 2 layer wrap applied to the left lower extremity to help manage edema. Anticipating left foot surgery tomorrow morning 8 AM 11/07/2024 Podiatry will follow. PDMP PDMP Reviewed: Not Reviewed Attestations 2 Medical Necessity Statement*: Left foot complete homolateral dislocation of Lisfranc joint requiring neurovascular monitoring and surgical intervention and medical optimization Coding Level of Care Code Acute Code for Chg Fwd Diagnoses Diabetic peripheral neuropathy associated with type 2 diabetes mellitus E11.42 Dislocation of tarsometatarsal joint of left foot, initial encounter S93.325A Encounter type: initial encounter Laterality: left Closed displaced fracture of first metatarsal bone of left foot, initial encounter S92.312A Encounter type: initial encounter Fracture alignment: displaced Fracture type: closed Closed displaced fracture of second metatarsal bone of left foot, initial encounter S92.322A Encounter type: initial encounter Fracture alignment: displaced Fracture type: closed Closed displaced fracture of third metatarsal bone of left foot, initial encounter S92.332A Encounter type: initial encounter Fracture alignment: displaced Fracture type: closed Closed nondisplaced fracture of fourth metatarsal bone of left foot, initial encounter S92.345A Encounter type: initial encounter Fracture alignment: nondisplaced Fracture type: closed Cuneiform fracture, foot 3+ pitting edema R60.9 Closed nondisplaced fracture of fifth metatarsal bone of left foot, initial encounter S92.355A Encounter type: initial encounter
[2024-11-06 11:44] VITALS: BP 119/69; PULSE 95; RESP 18; TEMP 36.6; O2SAT 92
[2024-11-06 16:00] VITALS: BP 117/76; PULSE 98; RESP 18; TEMP 36.7; O2SAT 92
--- NOTE | 2024-11-06 19:39 | P.PN_ITS ---
Subjective 2 Subjective: Patient tell me he feels fine foot swelling is decreased Vitals/I&O/Wt Last Vital Signs Temp 98.1 F 11/06/24 16:00 Pulse 98 11/06/24 16:00 Resp 18 11/06/24 16:00 BP 117/76 11/06/24 16:00 Pulse Ox 92 11/06/24 16:00 O2 Del Method Room Air 11/06/24 16:00 11/06/24 11/06/24 11/06/24 06:59 14:59 22:59 Intake Total 240 / 840 1080 / 1080 480 / 1560 Output Total 1999 1925 / 1924 400 / 2325 Balance -1760 / -1160 -845 / -845 80 / -765 Weight last 48 hrs Weight 152.124 kg Weight 152.135 kg Weight 111.584 kg Physical Exam 2 Narrative: General well-developed well-nourished obese man tall stature CV regular rate and rhythm Lungs clear to auscultation bilaterally Calves trace edema left foot is wrapped and less edema Psych patient is cooperative Data 11/05/24 16:37 11/05/24 16:37 A&P Assessment and plan 1. Foot fracture, left: Currently foot foot with 2 layer wrap and decreased edema. Surgery possibly tomorrow 2. Dislocation of tarsometatarsal joint of left foot, initial encounter: As above 3. Schizophrenia: Patient be resumed on his home psychiatric medication 4. Diabetic peripheral neuropathy associated with type 2 diabetes mellitus: Patient will have pain meds ordered and also gabapentin 5. BETTY (obstructive sleep apnea): Patient denied sleep apnea but is in his past medical history 6. Obesity (BMI 30.0-34.9): Patient reports unwanted weight gain and that he is on a weight loss shot. He is willing to take a low calorie weight loss diet as discussed today PDMP PDMP Reviewed: Not Reviewed Attestations 2 Medical Necessity Statement*: Patient require additional 2 midnights in the hospital for surgery and monitoring Coding Level of Care Code 69110 Diagnoses Foot fracture, left S92.902A Dislocation of tarsometatarsal joint of left foot, initial encounter S93.325A Encounter type: initial encounter Laterality: left Schizophrenia F20.9 Diabetic peripheral neuropathy associated with type 2 diabetes mellitus E11.42 BETTY (obstructive sleep apnea) G47.33 Obesity (BMI 30.0-34.9) E66.811 Time Spent (min) 15
[2024-11-06 19:55] VITALS: BP 132/80; PULSE 102; RESP 26; TEMP 36.7; O2SAT 90
[2024-11-07] VITALS (17 sets, daily range): BP systolic 99–171; BP diastolic 59–102; PULSE 102–133; RESP 17–26; TEMP 36.1–36.9; O2SAT 90–98
--- NOTE | 2024-11-07 07:19 | W.PM.OPSUD ---
Surgery/Procedure H&P Update DATE OF PROCEDURE: November 07, 2024 DATE H&P PERFORMED: 11/05/24 H&P UPDATE INFORMATION: I have reviewed H&P completed within last 30 days, I have examined patient prior to procedure, No changes to prior documentation and Risks and benefits of the procedure reviewed PREOP DIAGNOSIS: Left Lisfranc fracture dislocation PLANNED PROCEDURE: Operation Date: 11/07/24 08:10 Proposed Procedures p ORIF Foot ORIF Lisfranc(Left) - Eric Zelaya DPM
--- NOTE | 2024-11-07 07:55 | ANES.PREANE2 ---
Pre-Anesthetic Assessment Height/Weight: Height 1.83 m Weight 150.139 kg Temp Pulse Resp BP Pulse Ox O2 Del Method 98.0 F 102 H 22 H 171/102 95 Room Air 11/07/24 06:55 11/07/24 06:55 11/07/24 06:55 11/07/24 06:55 11/07/24 06:55 11/07/24 06:55 Preop Diagnosis: Left Lisfranc fracture dislocation Operation Date: 11/07/24 08:10 Proposed Procedures p ORIF Foot ORIF Lisfranc(Left) - Eric Zelaya DPM Familial anesthetic complications: none Was Beta Jd taken within 24 hours: Yes Was Clonidine taken within 24 hours: N/A Last intake: Intake Last Liquid Date 11/06/24 Last Liquid Time 23:55 Last Solid Date 11/06/24 Last Solid Time 23:00 Social No alcohol Exam alert, oriented x 3 and clear to auscultation bilaterally Airway Mallampati: Class III Dentition: other (poor dentition, multiple missing, chipped and broken, pt states none are loose. ) History/ROS No significant history except as noted Pulmonary Sleep Apnea (does not wear CPAP) CV/HEM Hypertension None reported Hepatic None reported GI Gastroesophageal Reflux Disease Metabolic Diabetes Mellitus, Hyperlipidemia and Morbid Obesity Musc/skel left lisfranc fracture dislocation Neuropsych schizophrenia Anesthetic Plan ASA status: 3E Anesthesia: Anesthesia Evaluation and General Risk of > 500 ml blood loss (7ml/kg in children): Yes, adequate IV access and fluids planned Medications/Allergies Home Medications ?Medication ?Instructions ?Recorded ?Confirmed ?Last Taken ?Type acetaminophen 325 mg tablet 650 mg PO QID PRN Fever Or Pain 08/04/19 11/06/24 11/05/24 05:25 History (Tylenol) benztropine 1 mg tablet 1 mg PO BID 08/04/19 11/06/24 11/05/24 07:15 History bisacodyl 5 mg tablet 5 mg PO DAILY 08/04/19 11/06/24 Unknown History fenofibrate nanocrystallized 145 145 mg PO DAILY 08/04/19 11/06/24 11/04/24 19:35 History mg tablet (Tricor) glipizide 10 mg tablet 10 mg PO BID 08/04/19 11/06/24 11/05/24 07:15 History loratadine 10 mg tablet (Claritin) 10 mg PO DAILY 08/04/19 11/06/24 11/05/24 07:10 History metformin 1,000 mg tablet 1,000 mg PO DAILY 08/04/19 11/06/24 11/05/24 07:15 History fluconazole 200 mg tablet 200 mg PO DAILY 08/19/23 11/06/24 11/05/24 07:10 History insulin glargine 100 unit/mL 70 unit SUBCUT .AT HS 08/19/23 11/06/24 11/03/24 19:00 History subcutaneous solution (Lantus U-100 Insulin) insulin glargine 100 unit/mL 70 unit SUBCUT .in am 08/19/23 11/06/24 11/05/24 07:05 History subcutaneous solution (Lantus U-100 Insulin) metoprolol tartrate 25 mg tablet 50 mg PO DAILY 08/19/23 11/06/24 11/05/24 07:15 History omeprazole 20 mg capsule,delayed 20 mg PO QAM 08/19/23 11/06/24 11/05/24 07:05 History release doxycycline hyclate 100 mg capsule 100 mg PO BID 11/24/23 11/06/24 11/05/24 07:15 History aluminum-mag hydroxide-simethicone 30 ml PO QID PRN Indigestion 11/06/24 11/06/24 Unknown History 400 mg-400 mg-40 mg/5 mL oral susp (Mylanta Maximum Strength) insulin lispro 100 unit/mL See Rx Instructions .Route .COMPLEX 11/06/24 11/06/24 11/05/24 11:40 History subcutaneous solution (Humalog U-100 Insulin) ondansetron HCl 4 mg tablet 4 mg PO Q4H PRN Nausea And Vomiting 11/06/24 11/06/24 Unknown History semaglutide 1 mg/dose (4 mg/3 mL) 1.5 mg SUBCUT Q7D 11/06/24 11/06/24 10/30/24 07:55 History subcutaneous pen injector (Ozempic) spironolactone 25 mg tablet 25 mg PO DAILY 11/06/24 11/06/24 11/05/24 07:15 History (Aldactone) Allergies Allergy/AdvReac Type Severity Reaction Status Date / Time haloperidol Allergy Unknown Verified 11/05/24 15:16 Current Medications Generic Name Dose Route Start Last Admin Trade Name Venus PRN Reason Stop Dose Admin Benztropine Mesylate 1 mg 11/06/24 17:00 11/06/24 15:58 Benztropine 1 Mg Tablet PO 1 mg 0500,1700 ADRIANNE Administration Bupivacaine HCl 15 ml 11/07/24 08:28 11/07/24 08:29 Bupivacaine 0.5% Inj 30 Ml INJECTION 11/07/24 08:29 15 ml ONCE ONE Administration Chlorpromazine HCl 150 mg 11/06/24 17:00 11/06/24 15:58 Chlorpromazine 50 Mg Tablet PO 150 mg 0500,1700 ADRIANNE Administration Enoxaparin Sodium 40 mg 11/05/24 20:12 11/06/24 20:31 Enoxaparin 40 Mg/0.4 Ml Syringe SUBCUT 40 mg Q24H ADRIANNE Administration Fenofibrate 145 mg 11/06/24 09:00 11/06/24 08:05 Fenofibrate 145 Mg Tablet PO 145 mg DAILY ADRIANNE Administration Insulin Glargine 70 unit 11/06/24 06:00 11/07/24 07:55 Insulin Glargine 100 Units/1 Ml SUBCUT Not Given QAM ADRIANNE Insulin Glargine 70 unit 11/05/24 21:00 11/06/24 20:31 Insulin Glargine 100 Units/1 Ml SUBCUT 70 unit BEDTIME ADRIANNE Administration Lidocaine HCl 10 ml 11/07/24 08:28 11/07/24 08:29 Lidocaine 1% 10 Ml Inj INJECTION 11/07/24 08:29 10 ml ONCE ONE Administration Metformin HCl 1,000 mg 11/06/24 09:00 11/06/24 08:05 Metformin 500 Mg Tablet PO 1,000 mg DAILY ADRIANNE Administration Metoprolol Tartrate 50 mg 11/06/24 09:00 11/06/24 08:05 Metoprolol Tartrate 25 Mg Tablet PO 50 mg DAILY ADRIANNE Administration Pantoprazole Sodium 40 mg 11/06/24 09:00 11/06/24 08:[address] 40 Mg Tablet PO 40 mg DAILY ADRIANNE Administration Perphenazine 14 mg 11/06/24 17:00 11/06/24 15:57 Perphenazine 4 Mg Tablet PO 14 mg 0500,1700 ADRIANNE Administration [facility] Anesthesia Medical History (Updated 11/05/24 @ 19:39 by Santiago Roth MD) Obesity (BMI 30.0-34.9) Schizophrenia Type 2 diabetes mellitus with other skin ulcer Unspecified open wound of unspecified back wall of thorax without penetration into thoracic cavity, initial encounter Gastro-esophageal reflux disease without esophagitis Allergic rhinitis, unspecified Type 2 diabetes mellitus without complications Pure hypercholesterolemia, unspecified BETTY (obstructive sleep apnea) Social History Smoking and tobacco/nicotine status: current every day tobacco/nicotine user cigarettes Quit status (tobacco/nicotine): not considering quitting Second hand smoke exposure: No Caregiver/support person: Yes Lives independently: No Housing: Long-Term Marital status: Single service: No Current occupational status: disabled Current occupational exposures/hazards: No Leisure activites: music and games Sexually active: No Do you think of yourself as: Straight/Heterosexual Current gender identity: Male Special lyle needs: No Data Anesthesia 11/05/24 16:37 11/05/24 16:37 Short CBC 11/05/24 Range/Units 16:37 WBC 10.63 (3.29-11.43) 10^3/uL Hgb 12.00 (11.27-16.99) g/dL Hct 37.4 (37-53) % MCV 81.7 L (82-101) fl Plt Count 288 (157-399) 10^3/cmm Neut % (Auto) 63.7 % Neut # (Auto) 6.77 (1.8-7.7) 10^3/uL BMP 11/05/24 16:37 Sodium 133 L Potassium 4.4 Chloride 94 L Carbon Dioxide 26 BUN 14 Creatinine 1.0 Glucose 244 H Calcium 9.6 Liver Function 11/05/24 Range/Units 16:37 Total Bilirubin 0.2 (0.15-1.2) mg/dL AST 18 (0-40) U/L ALT 18 (0-41) U/L Alkaline Phosphatase 70 (40-130) U/L Albumin 3.5 (3.5-5.2) g/dL
[2024-11-07] MEDS: ceFAZolin 3,000 MG in sodium chloride 0.9% (plus) 100 ML 200 MG IV (08:02)
[2024-11-07] MEDS: BUPivacaine 0.5% INJ 30 mL 15 ML INJECTION (08:29)
--- NOTE | 2024-11-07 10:17 | XRR_ITS ---
PROCEDURE INFORMATION: Exam: XR Left Foot Exam date and time: 11/07/2024 10:32 AM Age: 44 years old Clinical indication: Pain; Foot; Left; Additional info: Post op left foot orif TECHNIQUE: Imaging protocol: Radiologic exam of the left foot. Views: 3 or more views. COMPARISON: CR XR foot LT min 3V* [id number] 11/05/2024 3:48 PM FINDINGS: Bones/joints: Postsurgical changes related to homolateral Lisfranc injury repair. Cortical plate and 1st joint of the 2nd metatarsophalangeal joint. Additional surgical pins environment identified remaining metatarsal tarsal joints. Some persistent homolateral subluxation of the metatarsal tarsal joints remains but improved in the interim. Soft tissues: Overlying soft tissue swelling. Other findings: Cast material overlying the left lower extremity. XR/XR foot LT min 3V* [id number] IMPRESSION: As above.
--- NOTE | 2024-11-07 10:17 | W.PM.BPON ---
Date of Procedure: 07/04/23 Surgeon: Eric Zelaya DPM Architecture Technician(s): [place] Almazan Procedure(s) performed: First, second, third tarsometatarsal joint arthrodesis with osteotomy and angular correction, open reduction internal fixation fourth and fifth tarsometatarsal joint all left foot. Findings of the procedure(s): Complete homolateral and dorsal dislocation of left tarsometatarsal joint with multiplanar deformity. Estimated blood loss: 5 Specimen(s) removed: None Post-operative diagnosis: First, second, third, fourth, fifth metatarsal fracture with dislocation.
--- NOTE | 2024-11-07 10:19 | P.OP_ITS ---
Operative Report Date of procedure: November 07, 2024 Pre-op diagnosis: Diabetic peripheral neuropathy associated with type 2 diabetes mellitus E11.42 Dislocation of tarsometatarsal joint of left foot, initial encounter S93.325A Laterality: leftClosed displaced fracture of first metatarsal bone of left foot, initial encounter S92.312A Fracture type: closedClosed displaced fracture of second metatarsal bone of left foot, initial encounter S92.322A Fracture type: closedClosed displaced fracture of third metatarsal bone of left foot, initial encounter S92.332A Fracture type: closedClosed nondisplaced fracture of fourth metatarsal bone of left foot, initial encounter S92.345A Fracture type: closedCuneiform fracture, foot Closed nondisplaced fracture of fifth metatarsal bone of left foot, initial encounter S92.355A Post-op diagnosis: Diabetic peripheral neuropathy associated with type 2 diabetes mellitus E11.42 Dislocation of tarsometatarsal joint of left foot, initial encounter S93.325A Laterality: leftClosed displaced fracture of first metatarsal bone of left foot, initial encounter S92.312A Fracture type: closedClosed displaced fracture of second metatarsal bone of left foot, initial encounter S92.322A Fracture type: closedClosed displaced fracture of third metatarsal bone of left foot, initial encounter S92.332A Fracture type: closedClosed nondisplaced fracture of fourth metatarsal bone of left foot, initial encounter S92.345A Fracture type: closedCuneiform fracture, foot Closed nondisplaced fracture of fifth metatarsal bone of left foot, initial encounter S92.355A Procedure done: 1) first and second tarsometatarsal joint arthrodesiscond left foot. CPT code 22937. 2) open reduction internal fixation left medial cuneiform. CPT code 57230. 3) open reduction internal fixation left third metatarsal. CPT code 34402. 4) open reduction internal fixation left fourth metatarsal. CPT code 46615. 5) open reduction internal fixation left fifth metatarsal. CPT code 69611. Implants: [place] Lapidus plate 3.5 mm locking screws and 4 mm homerun screw. [place] straight slanted plate with 3.5 mm locking screws. [place] 4.0 mm headless screw. 0.062 K wire x 3 with Joce balls 2-0 Vicryl 3-0 Vicryl Skin hans Specimens removed/disposition: None Pathology: none Surgeon: Eric Zelaya DPM Photographic Restorer: [place] Almazan Estimated blood loss: 5 1 hour and 45 minutes IV fluids: See intraoperative documentation Urine output: None Complications: Intercuneiform instability unable to be reduced will require staged procedure. Brief History: Morgan Lagunas III is a 44 year old diabetic male with complete homolateral Lisfranc dislocation of the left foot. Patient is a poor historian. He states he is unaware of injury or trauma to the left foot. Of note he has diabetes with significant peripheral neuropathy. Per his report he thinks that his left foot has been excessively swollen for the past 2 to 3 weeks. He was directed to the emergency department from his care facility he resides at [facility] due to swelling of the left lower extremity and was directed for a DVT rule out. X-ray revealed dislocation of the left Lisfranc joint. Patient has poor insight on his diabetes, cannot recall where his blood sugars run or if he even takes medication for it. He is an everyday smoker smokes approximately 1 pack/day. I reviewed at length with the patient, the risks, potential complications, benefits, alternatives, expectations, and typical outcomes associated with the surgery. The risks and potential complications were explained in detail, including but not limited to infection, wound dehiscence or soft tissue complications, bleeding and hematoma, chronic edema, neuritis or nerve damage producing numbness or chronic pain, CRPS, failure to relieve pain or worsening pain, thick / painful / unsightly scar, limited motion / stiffness, malposition, delayed union, malunion, or nonunion, fracture, reaction to implants, anesthetic complications, venous thromboembolism, and deformity recurrence. I discussed the notion of no regrets with the patient as it pertains to complications and outcomes. The patient seemed to understand the nature of the proposed care and required convalescence. They asked appropriate questions, answered to their satisfaction. They are aware no guarantees can be made as to a satisfactory outcome and they understand there may be other possible unforeseen complications or outcomes not listed here that will be treated accordingly if they arise. There were no written or implied guarantees given to the patient. They gave informed consent to proceed. Procedure: Under mild sedation the patient was brought to the operating room and positioned onto the operating table in supine position. Timeout was performed. Anesthesia was then administered by the anesthesia service. Local anesthesia injected by myself consisting of 30 cc of one-to-one mixture 1% lidocaine and 0.5% Marcaine plain in a left 5 point ankle block fashion. A well-padded pneumatic tourniquet was applied to the left ankle. The left lower extremity was then scrubbed, prepped and draped utilizing normal aseptic technique. Left foot and ankle were then exanguinated with an Esmarch bandage and tourniquet inflated to 250 mmHg. Attention was directed to the left foot where no fracture blisters laceration abrasions were appreciated. Minimal edema pitting and anterior to the left lower extremity +1 was appreciated at the left foot. Due to reduction in edema able to visualize a gross deformity at the left midfoot. A incision was made at the dorsal medial aspect of the left tarsometatarsal joint medial and parallel to the extensor hallucis longus tendon through skin with #15 blade with dissection carried down through subcutaneous tissue to the layer of periosteum and joint capsule of the left first tarsometatarsal joint utilizing a combination of sharp and blunt technique. Care was taken to retract and preserve neurovascular and tendinous structures. All bleeders were ligated and cauterized as necessary. Gross fracture dislocation was appreciated of the first metatarsal and of the medial cuneiform the first metatarsal was completely laterally displaced to the point where the medial cortex of the first metatarsal was lateral to the lateral cortex of the medial cuneiform, the base of the first metatarsal and anterior face of the medial cuneiform were resected with a sagittal saw and prepped for arthrodesis utilizing a fenestrating drill bit and the first metatarsal was reduced onto the medial cuneiform and fixated with a [place] 4 mm headed homerun screw from dorsal distal to proximal plantar not violating the cuneiform navicular joint confirmed with intraoperative C arm and noted to have excellent bony apposition and compression noted and alignment of the first metatarsal medial cuneiform arthrodesis site with additional fixation with a Lapidus plate with 3.5 millimeter screws distally, the medial cuneiform was noted to be fractured and dislocated medially attempted to be reduced with [id number] fracture clamps with fixation with 3.5 millimeter screws through the plate from lateral to medial, residual diastases unable to be reduced further appreciated intraoperatively. The incision was irrigated with saline solution and closed in a layered fashion with periosteum reapproximated with 2-0 Vicryl subcutaneous tissue with 3-0 Vicryl and skin with hans. Attention was directed to the third and metatarsal space and lateral intermediate cuneiform where a linear longitudinal incision made dorsal to the second intermetatarsal space through skin with a #15 blade with dissection carried down through subcutaneous tissue to the layer of periosteum utilizing sharp and blunt technique. Care was taken to retract and preserve neurovascular and tendinous structures. All bleeders were ligated and cauterized as necessary segment tarsal fracture dislocation was reduced to the intermediate cuneiform and prepped for arthrodesis in like fashion as above and fixated with a dorsal locking plate with 3.5 mm locking screws with excellent bony apposition and compression noted to arthrodesis site and rectus alignment of the second ray. Attention was then directed to the third metatarsal fracture dislocation which was reduced with bone Fracture clamp and fixated utilizing standard AO technique with a [place] headless 4 mm screw from dorsal distal to proximal plantar across the third tarsometatarsal joint. Attention was then directed to the 4th and 5th metatarsal fracture dislocation that was reduced utilizing reverse mechanism of injury and the 4th and 5th metatarsals were fixated with 0.062 K wires crossing the 4th and 5th metatarsal cuboid joint in anatomic alignment. Distal pins were bent at 90 degrees trimmed and covered with Joce balls. Dorsal foot incision was irrigated with saline solution and closed with 2-0 Vicryl, 3-0 Vicryl and skin hans. All incisions and pin sites were dressed with Xeroform, sterile 4 x 4 gauze, Kerlix followed by application of a well-padded short leg cast with the ankle in neutral position. Tourniquet was deflated and a prompt hyperemic response is noted to the distal digits of the left foot. Patient tolerated the procedure and anesthesia well and was transferred to the PACU with vital signs stable and vascular status intact. Encouraged glycemic control and smoking cessation to increase surgical healing. Patient advised to remain strict nonweightbearing to the left foot until surgical sites are healed and stable. 1) first and second tarsometatarsal joint arthrodesiscond left foot. CPT code 75223. 2) open reduction internal fixation left medial cuneiform. CPT code 03402. 3) open reduction internal fixation left third metatarsal. CPT code 96654. 4) open reduction internal fixation left fourth metatarsal. CPT code 31552. 5) open reduction internal fixation left fifth metatarsal. CPT code 96445.
--- NOTE | 2024-11-07 11:08 | PC.NURSE ---
This nurse assumed care of pt at 1105. Pt back up to floor from PACU at this time. All 9:00am medications administered late due to pt being off the unit for surgery.
--- NOTE | 2024-11-07 14:07 | P.DS_ITS ---
Discharge Providers Date of Admission: 11/05/24 17:37 Date of Discharge: November 07, 2024 Attending Provider at Admission: Santiago Roth MD Attending Provider at Discharge: Santiago Roth MD Consults: Podiatry Dr. Eric Zelaya Primary Care Provider: Phillip Almazan MD Diagnoses at Discharge Discharge Diagnosis 1. Foot fracture, left: Details from hospital stay: Patient had significant edema in his foot upon admission on Friday. He had [address] Zelaya and then surgical repair this morning. Patient stable for discharge 2. Dislocation of tarsometatarsal joint of left foot, initial encounter: Details from hospital stay: As above 3. Schizophrenia: Details from hospital stay: Stable not agitated here 4. Diabetic peripheral neuropathy associated with type 2 diabetes mellitus: Details from hospital stay: Patient's A1c is 8.6 and he is morbidly obese. I talked with him about weight loss diet and he was agreeable. He is limited to 2000-calorie ADA diet 5. BETTY (obstructive sleep apnea): Details from hospital stay: Patient had some sonorous breathing here but not overt hypoxemia. Follow-up with PCP for referral for sleep study. Patient states he was prescribed CPAP before but did not wear it so they took it away 6. Morbid obesity with BMI of 40.0-44.9, adult: Details from hospital stay: Continue on GLP-1 agonist. Weight loss only occurs with eating less calories and your burning. It is important to still follow a low calorie low-carb diet and I would suggest limiting it to 2000 to 2200 heather daily to begin with adjusting upward or downward to affect 2 to 3 pound weight loss per week Reason for Visit Reason for Visit: LEFT LEG PAIN Brief History: Morgan Lagunas III is a 44 year old male with history of schizophrenia states he lives at [facility] for the last 4 to 5 years. Previous to that he lived in another facility for 4 years and prior to that he lived in a house with some people that he did not get along with. He describes it literally as they were getting along please came and asked the other person if they wanted to go somewhere else and they said no and then they asked him if he wanted to go somewhere else and he said yes. Patient thinks he broke his foot maybe a month or 2 ago. He states that he fell down about 2 months ago and his ankle swelled and it hurts a little to walk but he says he is okay. He describes it as 4-5 Patient admits to diabetes and states nurse gives him the insulin. He does take some pills but notes he does not know what those are. He knows he is in [place] at a hospital Hospital Course Hospital Course Patient was admitted with delayed presentation of a foot fracture unstable and requiring urgent surgery. He had significant edema so he was admitted and seen by Dr. Zelaya who did a 2 layer wrap to compress and resolve the edema. Patient underwent surgery today with good results and is ready for discharge Also addressed where his blood sugars and he is eating excessively so for step is to decrease him to 2200 heather daily. Patient has sleep apnea previously diagnosed but is not treated. Recommend that he follow-up with sleep specialist Physical Exam Narrative: General Well-developed well-nourished morbidly obese male in no acute cardiopulmonary distress CV regular rate and rhythm Lungs clear to auscultation bilaterally Oral Mallampati 1 Left foot is in a cast right foot trace edema Discharge Data Studies Completed and Pending Completed Studies During Hospitalization Category Date Time Status XR foot LT min 3V* 12398 Routine Exams 11/07/24 10:17 Completed XR foot LT min 3V* 56260 Stat Exams 11/05/24 15:39 Completed US venous duplex lower extremity LT [CV venous duplex Ultrasound 11/05/24 15:39 [place] [address]] Stat Pending at discharge Category Date Time Status C-arm Mini [id number] Routine Exams 11/07/24 07:10 Ordered Radiology Impressions Foot X-Ray 11/07/24 10:17 IMPRESSION: As above. Laboratory Results WBC 10.63 10^3/uL (3.29-11.43) 11/05/24 16:37 RBC 4.58 10^6/uL (3.85-5.65) 11/05/24 16:37 Hgb 12.00 g/dL (11.27-16.99) 11/05/24 16:37 Hct 37.4 % (37-53) 11/05/24 16:37 MCV 81.7 fl (82-101) L 11/05/24 16:37 MCH 26.2 pg (27-33) L 11/05/24 16:37 MCHC 32.1 g/dL (30-55) 11/05/24 16:37 RDW 14.8 % (12.1-15.1) 11/05/24 16:37 Plt Count 288 10^3/cmm (157-399) 11/05/24 16:37 MPV 8.6 fL (7.4-10.4) 11/05/24 16:37 Neut % (Auto) 63.7 % 11/05/24 16:37 Lymph % (Auto) 25.3 % 11/05/24 16:37 [place] % (Auto) 7.0 % 11/05/24 16:37 Eos % (Auto) 2.8 % 11/05/24 16:37 Baso % (Auto) 0.4 % 11/05/24 16:37 Neut # (Auto) 6.77 10^3/uL (1.8-7.7) 11/05/24 16:37 Lymph # (Auto) 2.7 10^3/uL (0.8-4.8) 11/05/24 16:37 [place] # (Auto) 0.7 10^3/uL (0.2-0.9) 11/05/24 16:37 Eos # (Auto) 0.3 10^3/uL (0.0-0.8) 11/05/24 16:37 Baso # (Auto) 0.0 10^3/uL (0.0-0.1) 11/05/24 16:37 Nucleated RBC % (auto) 0 % 11/05/24 16:37 Nucleated RBCs # 0.0 /100WBC 11/05/24 16:37 Sodium 133 mmol/L (136-145) L 11/05/24 16:37 Potassium 4.4 mmol/L (3.5-5.1) 11/05/24 16:37 Chloride 94 mmol/L (98-107) L 11/05/24 16:37 Carbon Dioxide 26 mmol/L (22-29) 11/05/24 16:37 Anion Gap 17.4 (5-19) 11/05/24 16:37 BUN 14 mg/dL (6-20) 11/05/24 16:37 Creatinine 1.0 mg/dL (0.7-1.2) 11/05/24 16:37 GFR Calculation 80.8 mL/min (90-130) L 11/05/24 16:37 Glucose 244 mg/dL (65-115) H 11/05/24 16:37 POC Glucose 157 mg/dL (70-110) H 11/07/24 06:19 Estimat Average Glucose 200 11/05/24 16:37 Hemoglobin A1c 8.6 % (4.0-6.0) H 11/05/24 16:37 Calculated Osmolality 285 mOsm/kg (285-295) 11/05/24 16:37 Calcium 9.6 mg/dL (8.5-10.5) 11/05/24 16:37 Total Bilirubin 0.2 mg/dL (0.15-1.2) 11/05/24 16:37 AST 18 U/L (0-40) 11/05/24 16:37 ALT 18 U/L (0-41) 11/05/24 16:37 Alkaline Phosphatase 70 U/L (40-130) 11/05/24 16:37 Total Protein 6.8 g/dL (6.6-8.7) 11/05/24 16:37 Albumin 3.5 g/dL (3.5-5.2) 11/05/24 16:37 Globulin 3.3 g/dL (1.3-4.6) 11/05/24 16:37 Vitals Last Vital Signs Temp 97.9 F 11/07/24 11:36 Pulse 120 H 11/07/24 11:36 Resp 19 H 11/07/24 11:36 BP 107/72 11/07/24 11:36 Pulse Ox 94 11/07/24 11:36 O2 Del Method Nasal Cannula 11/07/24 11:36 O2 Flow Rate 2.5 11/07/24 11:36 Discharge Plan Discharge Patient Disposition: Home Condition: Stable Prescriptions: New acetaminophen [Tylenol] 325 mg tablet 325 mg PO Q6H PRN (Reason: fever or pain) 7 Days Qty: 28 0RF ibuprofen 400 mg tablet 400 mg PO Q6H PRN (Reason: pain) 7 Days Qty: 28 0RF aspirin 81 mg tablet 81 mg PO DAILY Qty: 90 0RF Continued loratadine [Claritin] 10 mg tablet 10 mg PO DAILY glipizide 10 mg tablet 10 mg PO BID benztropine 1 mg tablet 1 mg PO BID metformin 1,000 mg tablet 1,000 mg PO DAILY fenofibrate nanocrystallized [Tricor] 145 mg tablet 145 mg PO DAILY bisacodyl 5 mg tablet 5 mg PO DAILY acetaminophen [Tylenol] 325 mg tablet 650 mg PO QID PRN (Reason: Fever Or Pain) insulin glargine [Lantus U-100 Insulin] 100 unit/mL solution 70 unit SUBCUT .in am insulin glargine [Lantus U-100 Insulin] 100 unit/mL solution 70 unit SUBCUT .AT HS metoprolol tartrate 25 mg tablet 50 mg PO DAILY doxycycline hyclate 100 mg capsule 100 mg PO BID omeprazole 20 mg capsule,delayed release(DR/EC) 20 mg PO QAM fluconazole 200 mg tablet 200 mg PO DAILY insulin lispro [Humalog U-100 Insulin] 100 unit/mL solution See Rx Instructions .ROUTE .COMPLEX Rx Instructions: 150-200= 4 units 201-250= 6 units 251-300=10 units 301-350=12 units 351-400=15 units spironolactone [Aldactone] 25 mg tablet 25 mg PO DAILY ondansetron HCl [Zofran] 4 mg Tablet 4 mg PO Q4H PRN (Reason: Nausea And Vomiting) alum-mag hydroxide-simeth [Mylanta Maximum Strength] 400-400-40 mg/5 mL Suspension 30 ml PO QID PRN (Reason: Indigestion) Ozempic 1 mg/dose (4 mg/3 mL) pen injector 1.5 mg SUBCUT Q7D Other Ambulatory Orders: DME: Wheelchair (Order) Location: None Selected Ordered By: Eric Zelaya Referrals: Phillip Almazan MD [Primary Care Provider, Internal Medicine] Discharge Diet: Diabetic Discharge Activity: Limit activity as instructed Patient Instructions: Acute Wound Care (DC), After Arthrodesis (DC), Opioid Safety, Post Anesthesia Care, Patient Portal & Renuka Instructions Activity Restrictions/Additional Instructions: Postoperative instructions from Dr. Zelaya. -Strict nonweightbearing at all times to your left foot. It is not safe to stand or walk on your left foot at this time. -Utilize wheelchair to remain nonweightbearing. -Current postoperative dressings and cast will remain intact for the next 14 days, please keep cast clean, dry and intact. -Please keep left foot elevated, utilize leg rest when using wheelchair. -Please take 81 mg aspirin once daily starting Friday, November 08, 2024. -Take acetaminophen 325 mg every 6 hours as needed for pain in addition to acetaminophen may also take ibuprofen 400 mg every 6 hours as needed for pain. -Follow-up in podiatry clinic [facility] [place] medical office building second floor November 18, 2024 at 12:45 PM. -Contact Dr. Zelaya at podiatry department at [facility] with any questions or concerns [phone]. Follow 2000-calorie ADA diet for weight loss You should get checked for sleep apnea again Discharge Attestations Time Spent in Discharge Care*: greater than 30 min Time Spent in Smoking Cessation: 4-minute Coding Diagnoses Foot fracture, left S92.902A Dislocation of tarsometatarsal joint of left foot, initial encounter S93.325A Schizophrenia F20.9 Diabetic peripheral neuropathy associated with type 2 diabetes mellitus E11.42 BETTY (obstructive sleep apnea) G47.33 Morbid obesity with BMI of 40.0-44.9, adult E66.01; Z68.41 Time Spent (min) 35
--- NOTE | 2024-11-07 14:18 | P.PN_ITS ---
Subjective 2 Subjective: 44-year-old male underwent ope n reduction internal fixation of unstable midfoot fracture and dislocation by Dr. Eric Zelaya podiatry this morning. Patient is released for discharge however he still has some hypoxemia tachycardia and borderline blood pressure Vitals/I&O/Wt Last Vital Signs Temp 97.9 F 11/07/24 11:36 Pulse 120 H 11/07/24 11:36 Resp 19 H 11/07/24 11:36 BP 107/72 11/07/24 11:36 Pulse Ox 94 11/07/24 11:36 O2 Del Method Nasal Cannula 11/07/24 11:36 O2 Flow Rate 2.5 11/07/24 11:36 11/06/24 11/07/24 11/07/24 22:59 06:59 14:59 Intake Total 960 / 2040 560 / 560 Output Total 1025 / 2950 525 / 3475 5 / Balance -65 / -910 -525 / -1435 555 / 555 Weight last 48 hrs Weight 150.139 kg Weight 152.124 kg Weight 152.135 kg Weight 111.584 kg Physical Exam 2 Narrative: General Well-developed well-nourished morbidly obese male in no acute cardiopulmonary distress CV regular rate and rhythm Lungs clear to auscultation bilaterally Oral Mallampati 1 Left foot is in a cast right foot trace edema Data 11/05/24 16:37 11/05/24 16:37 A&P Assessment and plan 1. Foot fracture, left: Status post open reduction internal fixation this morning and released by podiatry for outpatient follow-up 2. Dislocation of tarsometatarsal joint of left foot, initial encounter: As above 3. Schizophrenia: Resumed on his home psychiatric medication 4. Diabetic peripheral neuropathy associated with type 2 diabetes mellitus: Patient will have pain meds ordered and also gabapentin 5. BETTY (obstructive sleep apnea): Patient admitted to history of sleep apnea but did not wear the machine enough and therefore was taken away. I have talked with him and recommended that he be retested and comply with treatment. Also recommended weight loss and he is agreeable to weight loss diet 6. Morbid obesity with BMI of 40.0-44.9, adult: Continue with GLP-1 agonist. Continue with 2000-calorie ADA diet 7. Tobacco abuse: Counseled patient regarding smoking risks of lung disease and cancer. Also discussed risk of cardiovascular disease with NM or stroke of nicotine from other forms such as nicotine replacement. Patient states he smokes 6 times a day 2 cigarettes each time and is not interested in quitting at this time PDMP PDMP Reviewed: Not Reviewed Attestations 2 Medical Necessity Statement*: Patient remained in the hospital for stabilization of tachycardia, hypoxemia and expected to require an additional day Coding Level of Care Code 02928 Diagnoses Foot fracture, left S92.902A Dislocation of tarsometatarsal joint of left foot, initial encounter S93.325A Encounter type: initial encounter Laterality: left Schizophrenia F20.9 Diabetic peripheral neuropathy associated with type 2 diabetes mellitus E11.42 BETTY (obstructive sleep apnea) G47.33 Morbid obesity with BMI of 40.0-44.9, adult E66.01; Z68.41 Tobacco abuse Z72.0 Time Spent (min) 35
[2024-11-07 15:15] LABS: Hematocrit 38.2 % (37-53); Hemoglobin 11.40 g/dL (11.27-16.99); Mean Corpuscular HGB Conc 29.8 g/dL (30-55); Mean Corpuscular Hemoglobin 25.9 pg (27-33); Mean Corpuscular Volume 86.8 fl (82-101); Nucleated Red Blood Cells % 0 %; Platelet Count 263 10^3/cmm (157-399); Red Blood Count 4.40 10^6/uL (3.85-5.65); White Blood Count 12.18 10^3/uL (3.29-11.43)
[2024-11-07 15:33] LABS: Alanine Aminotransferase 19 U/L (0-41); Albumin Level 3.2 g/dL (3.5-5.2); Alkaline Phosphatase 68 U/L (40-130); Anion Gap 16.5 (5-19); Aspartate Amino Transferase 22 U/L (0-40); Blood Urea Nitrogen 16 mg/dL (6-20); Calcium 9.4 mg/dL (8.5-10.5); Carbon Dioxide 23 mmol/L (22-29); Chloride 98 mmol/L (98-107); Creatinine Clr Calc Pharmacy 100.4810; Globulin 3.0 g/dL (1.3-4.6); Glucose 261 mg/dL (65-115); Magnesium 1.6 mg/dL (1.7-2.3); Osmolality Calculated 286 mOsm/kg (285-295); Potassium 4.5 mmol/L (3.5-5.1); Sodium 133 mmol/L (136-145); Total Protein 6.2 g/dL (6.6-8.7)
--- NOTE | 2024-11-07 17:51 | CTR_ITS ---
PROCEDURE INFORMATION: Exam: CTA Chest With Contrast Exam date and time: 11/07/2024 6:15 PM Age: 44 years old Clinical indication: Abnormal findings; Abnormal diagnostic tests; Elevated d-dimer; Additional info: Elevated d-dimer tachycardia and hypoxemia TECHNIQUE: Imaging protocol: Computed tomographic angiography of the chest with contrast. Exam focused on the arteries. 3D rendering (Not supervised by radiologist): MIP and/or 3D reconstructed images were created by the technologist. Radiation optimization: All CT scans at this facility use at least one of these dose optimization techniques: automated exposure control; mA and/or kV adjustment per patient size (includes targeted exams where dose is matched to clinical indication); or iterative reconstruction. Contrast material: OMNIPAQUE 350; Contrast volume: 100 ml; Contrast route: INTRAVENOUS (IV); COMPARISON: CR XR chest 1V portable [id number] 02/16/2023 5:58 AM RADIATION DOSE METRICS: Total DLP (mGy-cm): 553.49 FINDINGS: Pulmonary arteries: Normal. No pulmonary emboli. Aorta: Unremarkable. No aortic aneurysm. No aortic dissection. Lungs: Subsegmental atelectasis bilaterally. No consolidation. No overt pulmonary edema. No masses. Pleural spaces: Unremarkable. No pneumothorax. No pleural effusion. Heart: Heart is enlarged. No pericardial effusion. Lymph nodes: Unremarkable. No enlarged lymph nodes. Bones/joints: Unremarkable. No acute fracture. Soft tissues: Unremarkable. CT/CT angio chest PE protcl [id number] IMPRESSION: No acute intrathoracic abnormalities.
[2024-11-07] MEDS: iohexol 350 mg/mL 500 mL Btl (per mL) IV (18:17)
--- NOTE | 2024-11-07 19:30 | ECG_ITS ---
[facility]: 2024-[facility]07 Pat Name: Morgan Lagunas Department: Room: 262 Gender: Male [employer]: : 1980 Requested By: Nikko Shah Order Number: [id number] Leon MD: Long Lyons M.D. Measurements Intervals [place] Rate: 133 P: 40 OR: 147 QRS: -38 QRSD: 94 T: 89 QT: 279 QTc: 416 Interpretive Statements SINUS TACHYCARDIA LEFT AXIS DEVIATION [QRS AXIS < -30] PATTERN CONSISTENT WITH PULMONARY DISEASE MINIMAL ST DEPRESSION [0.025+ mV ST DEPRESSION] Compared to ECG 02/16/2023 05:55:02 Left-axis deviation now present ST (T wave) deviation now present Electronically Signed On 11-08-2024 17:04:30 CDT by Long Lyons M.D. [email or web address]
[2024-11-07 19:54] LABS: ABG PH Result 7.22 (7.35-7.45); Arterial Blood Gas Hematocrit 35.2 % (42-52); Blood Gas Allen Test Pos; Blood Gas LPM 4.0 %; Blood Gas Sample Site Radial, right; Blood Gas Sample Type Arterial; Carboxyhemoglobin 1.9 %THgb (0.4-20.1); Glucose Level-ABG 277.0 mg/dL (70-115); HCO3 ABG 28.5 mmol/L (22-26); Ionized Calcium Level - ABG 1.4 mmol/L (1.1-1.4); Methemoglobin 1.3 % (0.4-1.5); Oxygen Saturation ABG 93.4; PO2 ABG 76.6 mmHg (80.0-100.0); Potassium Level - ABG 5.0 mmol/L (3.5-5.0); Sodium Level - ABG 135.0 mmol/L (131-143)
[2024-11-07 19:55] LABS: ABG PCO2 69.7 mmHg (35-45); Alveolar-Arterial Oxygen Gradi 0.0 mmHg (5-10)
[2024-11-07] MEDS: FUROsemide 10 mg/mL SDV 2mL 20 MG IVP (20:48)
[2024-11-07] MEDS: insulin glargine 100 units/1 mL 70 UNIT SUBCUT (20:49)
[2024-11-07 22:13] LABS: ABG PCO2 55.8 mmHg (35-45); ABG PH Result 7.31 (7.35-7.45); Alveolar-Arterial Oxygen Gradi 13.5 mmHg (5-10); Arterial Blood Gas Hematocrit 34.9 % (42-52); Blood Gas Sample Site Brachial, right; Blood Gas Sample Type Arterial; Carboxyhemoglobin 1.2 %THgb (0.4-20.1); Glucose Level-ABG 311.0 mg/dL (70-115); HCO3 ABG 28.0 mmol/L (22-26); Ionized Calcium Level - ABG 1.3 mmol/L (1.1-1.4); Methemoglobin 0.9 % (0.4-1.5); Oxygen Saturation ABG 94.0; PO2 ABG 77.5 mmHg (80.0-100.0); PO2 FiO2 Ratio Arterial Blood 221; Potassium Level - ABG 4.8 mmol/L (3.5-5.0); Sodium Level - ABG 133.0 mmol/L (131-143)
[2024-11-07 22:38] LABS: Thyroid Stimulating Hormone 1.54 uIU/mL (0.27-4.20)
[2024-11-07 23:01] LABS: Glucose Urine UA Negative (Normal); Nitrate Urine Negative (Negative); Specific Gravity, Urine 1.022 (1.005-1.030)
[2024-11-07 23:07] LABS: Add Urine Microscopic? YES
[2024-11-07 23:32] LABS: Iron 43 ug/dL (59-158); Total Iron Binding Capacity 281 mcg/dl; Unsaturated Iron Binding 238 ug/dL (112-347)
[2024-11-07 23:48] LABS: Vitamin B12 418 pg/mL (232-1245)
[2024-11-08] VITALS (9 sets, daily range): BP systolic 119–152; BP diastolic 74–89; PULSE 105–121; RESP 16–24; TEMP 36.7–37.3; O2SAT 93–99
[2024-11-08] MEDS: insulin glargine 100 units/1 mL 35 UNIT SUBCUT (09:46)
[2024-11-08 11:44] LABS: ABG PCO2 58.7 mmHg (35-45); ABG PH Result 7.31 (7.35-7.45); Alveolar-Arterial Oxygen Gradi 16.7 mmHg (5-10); Arterial Blood Gas Hematocrit 34.1 % (42-52); Blood Gas Allen Test Pos; Blood Gas LPM 4.0 %; Blood Gas Operator Identificat GD; Blood Gas Sample Site Radial, right; Blood Gas Sample Type Arterial; Carboxyhemoglobin 1.1 %THgb (0.4-20.1); Glucose Level-ABG 268.0 mg/dL (70-115); HCO3 ABG 29.4 mmol/L (22-26); Ionized Calcium Level - ABG 1.3 mmol/L (1.1-1.4); Methemoglobin 1.1 % (0.4-1.5); Oxygen Saturation ABG 94.2; PO2 ABG 78.6 mmHg (80.0-100.0); PO2 FiO2 Ratio Arterial Blood 201; Potassium Level - ABG 4.2 mmol/L (3.5-5.0); Sodium Level - ABG 135.0 mmol/L (131-143)
[2024-11-08 12:54] LABS: Hematocrit 33.8 % (37-53); Hemoglobin 10.30 g/dL (11.27-16.99); Mean Corpuscular HGB Conc 30.5 g/dL (30-55); Mean Corpuscular Hemoglobin 25.8 pg (27-33); Mean Corpuscular Volume 84.5 fl (82-101); Nucleated Red Blood Cells % 0 %; Platelet Count 229 10^3/cmm (157-399); Red Blood Count 4.00 10^6/uL (3.85-5.65); White Blood Count 10.27 10^3/uL (3.29-11.43)
[2024-11-08 13:16] LABS: Alanine Aminotransferase 13 U/L (0-41); Albumin Level 3.1 g/dL (3.5-5.2); Alkaline Phosphatase 63 U/L (40-130); Anion Gap 14.6 (5-19); Aspartate Amino Transferase 13 U/L (0-40); Blood Urea Nitrogen 16 mg/dL (6-20); Calcium 9.3 mg/dL (8.5-10.5); Carbon Dioxide 25 mmol/L (22-29); Chloride 99 mmol/L (98-107); Creatinine Clr Calc Pharmacy 110.9356; Globulin 2.9 g/dL (1.3-4.6); Glucose 289 mg/dL (65-115); Osmolality Calculated 290 mOsm/kg (285-295); Potassium 4.6 mmol/L (3.5-5.1); Sodium 134 mmol/L (136-145); Total Protein 6.0 g/dL (6.6-8.7)
--- NOTE | 2024-11-08 13:16 | P.PN_ITS ---
Subjective 2 Subjective: Hospital course appreciated. Labs not drawn yet. Examination patient is on 3 L nasal cannula, awake and alert, able to have complete conversation. Alert to self, being in hospital, date of . States she was supposed to be on CPAP in the past but has not been needing it lately. Complaining of pain in the foot. Vitals/I&O/Wt Last Vital Signs Temp 98.1 F 11/08/24 12:00 Pulse 118 H 11/08/24 12:00 Resp 18 11/08/24 12:00 BP 148/80 11/08/24 12:00 Pulse Ox 94 11/08/24 12:00 O2 Del Method Nasal Cannula 11/08/24 12:00 O2 Flow Rate 4 11/08/24 08:00 FiO2 40 11/08/24 04:20 11/07/24 11/08/24 11/08/24 22:59 06:59 14:59 Intake Total 1960 / 2520 1687.5 / 1687.5 Output Total 200 / 205 1950 / 2155 Balance 1760 / 2315 -1950 / 365 1687.5 / 1687.5 Weight last 48 hrs Weight 156.852 kg Weight 150.139 kg Physical Exam 2 Narrative: General Well-developed well-nourished morbidly obese male in no acute cardiopulmonary distress CV regular rate and rhythm Lungs clear to auscultation bilaterally Left foot is in a cast right foot trace edema Urinary Catheter Management: Vyas: Cath Placed During This Visit: yes Reason for Continuing Indwelling Catheter: Other Urinary Catheter Date of Insertion: 11/07/24 Urinary Catheter Time of Insertion: 22:30 Data 11/08/24 12:38 11/07/24 15:00 A&P Assessment and plan 1. Foot fracture, left: Status post open reduction internal fixation 11/07. Appreciate podiatry recommendations. Physical therapy evaluation. Will need to follow-up with podiatry team as an outpatient. Nonweightbearing status as per podiatry team. 2. Hypercapnic respiratory failure: Due to somnolence postoperatively and obstructive sleep apnea. Appreciate ABG. Oxygen supplementation keeping saturation over 88%. CTA negative for PE or acute abnormality. BiPAP nightly. Patient awake and alert today. Able to have oral intake. Stop IV fluids. 3. BETTY (obstructive sleep apnea): Past history. Noncompliant with CPAP. Continue with BiPAP nightly. 4. Dislocation of tarsometatarsal joint of left foot, initial encounter: As above 5. Schizophrenia: Resumed on his home psychiatric medication 6. Morbid obesity with BMI of 40.0-44.9, adult: Continue with GLP-1 agonist. Continue with 2000-calorie ADA diet 7. Tobacco abuse: Counseled patient regarding smoking risks of lung disease and cancer. Also discussed risk of cardiovascular disease with [place] or stroke of nicotine from other forms such as nicotine replacement. Patient states he smokes 6 times a day 2 cigarettes each time and is not interested in quitting at this time Plan: Hypertension: Goal blood pressure less than 140/90 mmHg. Heart rate elevated. Change metoprolol to 50 mg twice daily. Uptitrate as per heart rate. Check EKG. Uptitrate as per goal blood pressure. If needed will add NATAN/ARB. Type 2 diabetes mellitus: Continue with Lantus 70 units Q12 hourly, add insulin sliding scale low-dose protocol. Full code Carb consistent cardiac diet Protonix for PUD prophylaxis Lovenox for DVT prophylaxis. PDMP PDMP Reviewed: Not Reviewed Attestations 2 Medical Necessity Statement*: Require further hospitalization for postoperative care and patient was found to sleep apnea and into hypercapnic respiratory failure initially admitted for fracture of left foot requiring ORIF Diagnoses Foot fracture, left S92.902A Hypercapnic respiratory failure J96.92 BETTY (obstructive sleep apnea) G47.33 Dislocation of tarsometatarsal joint of left foot, initial encounter S93.325A Encounter type: initial encounter Laterality: left Schizophrenia F20.9 Morbid obesity with BMI of 40.0-44.9, adult E66.01; Z68.41 Tobacco abuse Z72.0
[2024-11-08 13:18] LABS: Cholesterol 161 mg/dL (0-200); HDL Cholesterol 26 mg/dL (60-100); Magnesium 1.5 mg/dL (1.7-2.3); Triglycerides 202 mg/dL (0-150); VLDL Cholestrol Calculation 40 mg/dL (0-30)
[2024-11-08] MEDS: sennosides-docusate Tablet 1 TAB PO ×2 (13:44→18:10)
--- NOTE | 2024-11-08 14:48 | P.PN_ITS ---
Subjective 2 Subjective: Patient seen bedside this p.m. Endorses mild pain to the left foot. Has been compliant with weightbearing status remaining nonweightbearing. Utilizing BiPAP Vitals/I&O/Wt Last Vital Signs Temp 98.1 F 11/08/24 12:00 Pulse 121 H 11/08/24 13:29 Resp 18 11/08/24 12:00 BP 148/80 11/08/24 12:00 Pulse Ox 99 11/08/24 13:29 O2 Del Method Nasal Cannula 11/08/24 12:00 O2 Flow Rate 4 11/08/24 08:00 FiO2 40 11/08/24 13:29 11/07/24 11/08/24 11/08/24 22:59 06:59 14:59 Intake Total 1960 / 2520 1687.5 / 1687.5 Output Total 200 / 205 1950 / 2155 750 / 750 Balance 1760 / 2315 -1950 / 365 937.5 / 937.5 Weight last 48 hrs Weight 345 lb 12.8 oz Weight 331 lb Physical Exam 2 Narrative: GENERAL: Patient is alert and oriented ?3 and in no acute distress. The following is a focused bilateral lower extremity exam. VASCULAR: Dorsalis pedis palpable bilaterally. Posterior tibial arteries palpable. Capillary refill time less than 3 seconds to the distal hallux bilaterally. Calf is supple and nontender proximally and distally. +3 pitting edema to the left foot and ankle. +1 pitting edema to the right foot and ankle. NEUROLOGICAL: Protective sensation absent to bilateral foot. DERMATOLOGICAL: Postoperative dressings and cast are clean dry and intact. MUSCULOSKELETAL: No pain with left posterior calf palpation. Able to wiggle toes on command. Urinary Catheter Management: Vyas: Cath Placed During This Visit: yes Reason for Continuing Indwelling Catheter: Other Urinary Catheter Date of Insertion: 11/07/24 Urinary Catheter Time of Insertion: 22:30 Data 11/08/24 12:38 11/08/24 12:38 A&P Assessment and plan 1. Diabetic peripheral neuropathy associated with type 2 diabetes mellitus: 2. Dislocation of tarsometatarsal joint of left foot, initial encounter: 3. Closed displaced fracture of first metatarsal bone of left foot, initial encounter: 4. Closed displaced fracture of second metatarsal bone of left foot, initial encounter: 5. Closed displaced fracture of third metatarsal bone of left foot, initial encounter: 6. Closed nondisplaced fracture of fourth metatarsal bone of left foot, initial encounter: 7. Cuneiform fracture, foot: 8. 3+ pitting edema: 9. Closed nondisplaced fracture of fifth metatarsal bone of left foot, initial encounter: Plan: 44-year-old male presents with complete homolateral left Lisfranc fracture dislocation with unknown date of injury. High risk injury with comorbidity of uncontrolled diabetes and current pack-a-day smoker. Status post open reduction and internal fixation as well as midfoot fusion left lower extremity, surgical dressing is clean dry and intact. Date of operation 11/07/[address] Zelaya. -Strict nonweightbearing at all times to your left foot. It is not safe to stand or walk on your left foot at this time. -Utilize wheelchair to remain nonweightbearing. -Current postoperative dressings and cast will remain intact for the next 14 days, please keep cast clean, dry and intact. -Please keep left foot elevated, utilize leg rest when using wheelchair. -Please take 81 mg aspirin once daily starting Friday, November 08, 2024. -Take acetaminophen 325 mg every 6 hours as needed for pain in addition to acetaminophen may also take ibuprofen 400 mg every 6 hours as needed for pain. -Follow-up in podiatry clinic [facility] medical office building second floor November 18, 2024 at 12:45 PM. -Contact Dr. Zelaya at podiatry department at [facility] with any questions or concerns [phone]. Podiatry will follow. PDMP PDMP Reviewed: Not Reviewed Attestations 2 Medical Necessity Statement*: Deferred to primary Coding Level of Care Code Acute Code for Chg Fwd Diagnoses Diabetic peripheral neuropathy associated with type 2 diabetes mellitus E11.42 Dislocation of tarsometatarsal joint of left foot, initial encounter S93.325A Encounter type: initial encounter Laterality: left Closed displaced fracture of first metatarsal bone of left foot, initial encounter S92.312A Encounter type: initial encounter Fracture alignment: displaced Fracture type: closed Closed displaced fracture of second metatarsal bone of left foot, initial encounter S92.322A Encounter type: initial encounter Fracture alignment: displaced Fracture type: closed Closed displaced fracture of third metatarsal bone of left foot, initial encounter S92.332A Encounter type: initial encounter Fracture alignment: displaced Fracture type: closed Closed nondisplaced fracture of fourth metatarsal bone of left foot, initial encounter S92.345A Encounter type: initial encounter Fracture alignment: nondisplaced Fracture type: closed Cuneiform fracture, foot 3+ pitting edema R60.9 Closed nondisplaced fracture of fifth metatarsal bone of left foot, initial encounter S92.355A Encounter type: initial encounter
[2024-11-08] MEDS: insulin glargine 100 units/1 mL 70 UNIT SUBCUT (20:17)
[2024-11-09] VITALS (7 sets, daily range): BP systolic 97–134; BP diastolic 55–83; PULSE 98–106; RESP 16–24; TEMP 36.6–37.3; O2SAT 88–100
[2024-11-09 05:15] LABS: Magnesium 1.9 mg/dL (1.7-2.3)
[2024-11-09] MEDS: sennosides-docusate Tablet 1 TAB PO (08:07)
[2024-11-09] MEDS: insulin glargine 100 units/1 mL 70 UNIT SUBCUT (08:08)
--- NOTE | 2024-11-09 08:57 | P.DS_ITS ---
Discharge Providers Date of Admission: 11/05/24 17:37 Date of Discharge: November 09, 2024 Attending Provider at Admission: Santiago Roth MD Attending Provider at Discharge: Andre Avalos MD Consults: Podiatry: Dr. Zelaya Primary Care Provider: Phillip Almazan MD Diagnoses at Discharge Discharge Diagnosis 1. Diabetic peripheral neuropathy associated with type 2 diabetes mellitus: 2. Dislocation of tarsometatarsal joint of left foot, initial encounter: 3. Closed displaced fracture of first metatarsal bone of left foot, initial encounter: 4. Closed displaced fracture of second metatarsal bone of left foot, initial encounter: 5. Closed displaced fracture of third metatarsal bone of left foot, initial encounter: 6. Closed nondisplaced fracture of fourth metatarsal bone of left foot, initial encounter: 7. Cuneiform fracture, foot: 8. 3+ pitting edema: 9. Closed nondisplaced fracture of fifth metatarsal bone of left foot, initial encounter: Reason for Visit Reason for Visit: LEFT LEG PAIN Brief History: History as per HPI: Morgan Lagunas III is a 44 year old male with history of schizophrenia states he lives at [facility] for the last 4 to 5 years. Previous to that he lived in another facility for 4 years and prior to that he lived in a house with some people that he did not get along with. He describes it literally as they were getting along please came and asked the other person if they wanted to go somewhere else and they said no and then they asked him if he wanted to go somewhere else and he said yes. Patient thinks he broke his foot maybe a month or 2 ago. He states that he fell down about 2 months ago and his ankle swelled and it hurts a little to walk but he says he is okay. He describes it as 4-5/10 Patient admits to diabetes and states nurse gives him the insulin. He does take some pills but notes he does not know what those are. Hospital Course Hospital Course Patient was admitted with delayed presentation of a foot fracture unstable and requiring urgent surgery. He had significant edema so he was admitted and seen by Dr. Zelaya who did a 2 layer wrap to compress and resolve the edema. Patient underwent ORIF on 11/07 with good results. Postoperatively patient had episode of altered mental status due to hypercapnic respiratory failure leading to respiratory acidosis which was managed with BiPAP ventilation. Patient responded well to the treatment and has been at his baseline mentation for last 24 hours. During hospitalization he was found to have elevated blood sugars for which his home dose of Lantus was increased. He was also found to have tachycardia for which his home dose of metoprolol was changed to twice daily. Patient has been counseled and educated in detail to have repeat sleep study done at the earliest and to be more compliant with BiPAP. Patient should be on oxygen keeping his oxygen saturation over 88%. Physical Exam Narrative: General Well-developed well-nourished morbidly obese male in no acute cardiopulmonary distress CV regular rate and rhythm Lungs clear to auscultation bilaterally Left foot is in a cast right foot trace edema Urinary Catheter Management: Vyas: Cath Placed During This Visit: yes Reason for Continuing Indwelling Catheter: Other Urinary Catheter Date of Insertion: 11/07/24 Urinary Catheter Time of Insertion: 22:30 Discharge Data Studies Completed and Pending Completed Studies During Hospitalization Category Date Time Status CTA chest [CT angio chest PE protcl [id number]] Routine Cat Scan 11/07/24 17:51 Completed XR foot LT min 3V* [id number] Routine Exams 11/07/24 10:17 Completed XR foot LT min 3V* [id number] Stat Exams 11/05/24 15:39 Completed US venous duplex lower extremity LT [CV venous duplex Ultrasound 11/05/24 15:39 [place] [address]] Stat Pending at discharge Category Date Time Status C-arm Mini 12218 Routine Exams 11/07/24 07:10 Ordered Complete Blood Count w/Auto Stat Lab 11/09/24 08:57 Ordered Comprehensive Metabolic Panel Routine Lab 11/09/24 08:57 Ordered MAG [Magnesium] AM LABS Lab 11/10/24 04:00 Ordered Radiology Impressions Foot X-Ray 11/07/24 10:17 IMPRESSION: As above. Chest CTA 11/07/24 17:51 IMPRESSION: No acute intrathoracic abnormalities. Laboratory Results WBC 10.27 10^3/uL (3.29-11.43) 11/08/24 12:38 RBC 4.00 10^6/uL (3.85-5.65) 11/08/24 12:38 Hgb 10.30 g/dL (11.27-16.99) L 11/08/24 12:38 Hct 33.8 % (37-53) L 11/08/24 12:38 MCV 84.5 fl (82-101) 11/08/24 12:38 MCH 25.8 pg (27-33) L 11/08/24 12:38 MCHC 30.5 g/dL (30-55) 11/08/24 12:38 RDW 14.8 % (12.1-15.1) 11/08/24 12:38 Plt Count 229 10^3/cmm (157-399) 11/08/24 12:38 MPV 8.8 fL (7.4-10.4) 11/08/24 12:38 Neut % (Auto) 70.5 % 11/08/24 12:38 Lymph % (Auto) 18.1 % 11/08/24 12:38 Todd % (Auto) 8.3 % 11/08/24 12:38 Eos % (Auto) 1.9 % 11/08/24 12:38 Baso % (Auto) 0.4 % 11/08/24 12:38 Neut # (Auto) 7.25 10^3/uL (1.8-7.7) 11/08/24 12:38 Lymph # (Auto) 1.9 10^3/uL (0.8-4.8) 11/08/24 12:38 Todd # (Auto) 0.9 10^3/uL (0.2-0.9) 11/08/24 12:38 Eos # (Auto) 0.2 10^3/uL (0.0-0.8) 11/08/24 12:38 Baso # (Auto) 0.0 10^3/uL (0.0-0.1) 11/08/24 12:38 Nucleated RBC % (auto) 0 % 11/08/24 12:38 Nucleated RBCs # 0.0 /100WBC 11/08/24 12:38 D-Dimer 2.92 ug/mLFEU (0-0.59) H 11/07/24 15:00 Specimen Type Arterial 11/08/24 11:28 Sample Site Radial, right 11/08/24 11:28 ABG pH 7.31 (7.35-7.45) L 11/08/24 11:28 ABG pCO2 58.7 mmHg (35-45) H 11/08/24 11:28 ABG pO2 78.6 mmHg (80.0-100.0) L 11/08/24 11:28 ABG PO2/FiO2 Ratio 201 11/08/24 11:28 ABG HCO3 29.4 mmol/L (22-26) H 11/08/24 11:28 ABG O2 Saturation 94.2 11/08/24 11:28 ABG Base Excess 2.1 mmol/L (-2.0-2.0) H 11/08/24 11:28 Bola Test Pos 11/08/24 11:28 A-a O2 Gradient 16.7 mmHg (5-10) H 11/08/24 11:28 Hematocrit 34.1 % (42-52) L 11/08/24 11:28 Hgb O2 Saturation 92.2 % (95-100) L 11/08/24 11:28 Carboxyhemoglobin 1.1 %THgb (0.4-20.1) 11/08/24 11:28 Methemoglobin 1.1 % (0.4-1.5) 11/08/24 11:28 Total Hemoglobin 11.1 g/dL (14-18) L 11/08/24 11:28 Sodium 135.0 mmol/L (131-143) 11/08/24 11:28 Potassium 4.2 mmol/L (3.5-5.0) 11/08/24 11:28 Glucose 268.0 mg/dL (70-115) H 11/08/24 11:28 Ionized Calcium 1.3 mmol/L (1.1-1.4) 11/08/24 11:28 O2 Delivery Device Nc 11/08/24 11:28 O2 Liters/Min 4.0 % 11/08/24 11:28 FiO2 39.0 % 11/08/24 11:28 Automation And Controls Supervisor ID [id number] 11/08/24 11:28 Sodium 134 mmol/L (136-145) L 11/08/24 12:38 Potassium 4.6 mmol/L (3.5-5.1) 11/08/24 12:38 Chloride 99 mmol/L (98-107) 11/08/24 12:38 Carbon Dioxide 25 mmol/L (22-29) 11/08/24 12:38 Anion Gap 14.6 (5-19) 11/08/24 12:38 BUN 16 mg/dL (6-20) 11/08/24 12:38 Creatinine 1.3 mg/dL (0.7-1.2) H 11/08/24 12:38 GFR Calculation 59.7 mL/min (90-130) L 11/08/24 12:38 Glucose 289 mg/dL (65-115) H 11/08/24 12:38 POC Glucose 241 mg/dL (70-110) H 11/09/24 06:21 Estimat Average Glucose 200 11/05/24 16:37 Hemoglobin A1c 8.6 % (4.0-6.0) H 11/05/24 16:37 Calculated Osmolality 290 mOsm/kg (285-295) 11/08/24 12:38 Calcium 9.3 mg/dL (8.5-10.5) 11/08/24 12:38 Magnesium 1.9 mg/dL (1.7-2.3) 11/09/24 04:48 Iron 43 ug/dL (59-158) L 11/07/24 15:00 TIBC 281 mcg/dl 11/07/24 15:00 % Saturation 15.3 % (20-50) L 11/07/24 15:00 Unsat Iron Binding 238 ug/dL (112-347) 11/07/24 15:00 Total Bilirubin 0.5 mg/dL (0.15-1.2) 11/08/24 12:38 AST 13 U/L (0-40) 11/08/24 12:38 ALT 13 U/L (0-41) 11/08/24 12:38 Alkaline Phosphatase 63 U/L (40-130) 11/08/24 12:38 Total Protein 6.0 g/dL (6.6-8.7) L 11/08/24 12:38 Albumin 3.1 g/dL (3.5-5.2) L 11/08/24 12:38 Globulin 2.9 g/dL (1.3-4.6) 11/08/24 12:38 Triglycerides 202 mg/dL (0-150) H 11/08/24 12:38 Cholesterol 161 mg/dL (0-200) 11/08/24 12:38 LDL Cholesterol, Calc 95 mg/dL (50-129) 11/08/24 12:38 Total VLDL Cholesterol 40 mg/dL (0-30) H 11/08/24 12:38 HDL Cholesterol 26 mg/dL (60-100) L 11/08/24 12:38 Cholesterol/HDL Ratio 6.19 mg/dL (1.0-5.00) H 11/08/24 12:38 Vitamin B12 418 pg/mL (232-1245) 11/07/24 15:00 Folate 11.3 ng/mL (4.5-32.2) 11/08/24 12:38 TSH 1.54 uIU/mL (0.27-4.20) 11/07/24 15:00 Urine Color Yellow (Yellow) 11/07/24 22:41 Urine Appearance Clear (CLEAR) 11/07/24 22: Urine pH 6.0 (5-7) 11/07/24 22:41 Ur Specific Sutton 1.022 (1.005-1.030) 11/07/24 22:41 Urine Protein 1+ (Negative) A 11/07/24 22:41 Urine Glucose (UA) Negative (Normal) 11/07/24 22:41 Urine Ketones Negative (Negative) 11/07/24 22:41 Urine Blood Negative (Negative) 11/07/24 22:41 Urine Nitrate Negative (Negative) 11/07/24 22:41 Urine Bilirubin Negative (Negative) 11/07/24 22:41 Urine Urobilinogen 1.0 mg/dL (Negative) 11/07/24 22:41 Ur Leukocyte Esterase Negative (Negative) 11/07/24 22:41 Urine RBC 3-5 /hpf (0-2) 11/07/24 22:41 Urine WBC 0-5 /hpf (0-5) 11/07/24 22:41 Ur Squamous Epith Cells 0-5 /hpf (0-5) 11/07/24 22:41 Amorphous Sediment Not Reportable 11/07/24 22:41 Urine Bacteria None seen /hpf (NONE) 11/07/24 22:41 Hyaline Casts 5.36 /lpf 11/07/24 22:41 Vitals Last Vital Signs Temp 97.9 F 11/09/24 08:07 Pulse 98 11/09/24 08:07 Resp 18 11/09/24 08:07 BP 130/80 11/09/24 08:07 Pulse Ox 100 11/09/24 08:07 O2 Del Method Nasal Cannula 11/09/24 08:07 O2 Flow Rate 4 11/08/24 08:00 FiO2 40 11/09/24 04:00 Discharge Plan Discharge Patient Disposition: Xfer [facility] Condition: Stable Prescriptions: New aspirin 81 mg tablet 81 mg PO DAILY Qty: 90 0RF Continued glipizide 10 mg tablet 10 mg PO BID benztropine 1 mg tablet 1 mg PO BID fenofibrate nanocrystallized [Tricor] 145 mg tablet 145 mg PO DAILY bisacodyl 5 mg tablet 5 mg PO DAILY acetaminophen [Tylenol] 325 mg tablet 650 mg PO QID PRN (Reason: Fever Or Pain) insulin glargine [Lantus U-100 Insulin] 100 unit/mL solution 70 unit SUBCUT .in am insulin glargine [Lantus U-100 Insulin] 100 unit/mL solution 70 unit SUBCUT .AT HS omeprazole 20 mg capsule,delayed release(DR/EC) 20 mg PO QAM insulin lispro [Humalog U-100 Insulin] 100 unit/mL solution See Rx Instructions .ROUTE .COMPLEX Rx Instructions: 150-200= 4 units 201-250= 6 units 251-300=10 units 301-350=12 units 351-400=15 units spironolactone [Aldactone] 25 mg tablet 25 mg PO DAILY ondansetron HCl 4 mg Tablet 4 mg PO Q4H PRN (Reason: Nausea And Vomiting) alum-mag hydroxide-simeth [Mylanta Maximum Strength] 400-400-40 mg/5 mL S uspension 30 ml PO QID PRN (Reason: Indigestion) Ozempic 1 mg/dose (4 mg/3 mL) pen injector 1.5 mg SUBCUT Q7D Changed loratadine [Claritin] 10 mg tablet 10 mg PO DAILY PRN (Reason: Allergy) Qty: 5 0RF metoprolol tartrate 25 mg tablet 50 mg PO BID 30 Days Qty: 120 0RF Discontinued metformin 1,000 mg tablet 1,000 mg PO DAILY doxycycline hyclate 100 mg capsule 100 mg PO BID fluconazole 200 mg tablet 200 mg PO DAILY Discharge Order = DC NOW: Discharge Order (Routine); Ordered 11/09/24 Ordered By: Andre Avalos Other Ambulatory Orders: DME: Wheelchair (Order) Location: None Selected Ordered By: Eric Zelaya Referrals: [facility] [Outside] Phillip Almazan MD [Primary Care Provider, Internal Medicine] Eric Zelaya DPM [Physician, Podiatry] - 11/18/24 12:45 pm Discharge Diet: Regular, Cardiac and Diabetic Discharge Activity: Limit activity as instructed Patient Instructions: Acute Wound Care (DC), After Arthrodesis (DC), Opioid Safety, Post Anesthesia Care, Patient Portal & [place] Instructions Activity Restrictions/Additional Instructions: Postoperative instructions from Dr. Zelaya. -Strict nonweightbearing at all times to your left foot. It is not safe to stand or walk on your left foot at this time. -Utilize wheelchair to remain nonweightbearing. -Current postoperative dressings and cast will remain intact for the next 14 days, please keep cast clean, dry and intact. -Please keep left foot elevated, utilize leg rest when using wheelchair. -Please take 81 mg aspirin once daily starting Friday, November 08, 2024. -Take acetaminophen 325 mg every 6 hours as needed for pain in addition to acetaminophen. -Follow-up in podiatry clinic [facility] medical office building second floor November 18, 2024 at 12:45 PM. -Contact Dr. Zelaya at podiatry department at [facility] with any questions or concerns [phone]. Follow 2000-calorie ADA diet for weight loss You should get checked for sleep apnea again> Maintain oxygen saturation over 88%. Discharge Attestations Time Spent in Discharge Care*: greater than 30 min Specific Discharge Activities: educating patient, discussing with pcp/other providers, discussing with renal case manager/social workers/dc planners, documenting/other paperwork and evaluating patient/reviewing data Status at Discharge: Cognitive status at discharge: mildly impaired cognition , Behavioral status at discharge: cooperative , Functional status at discharge: uses cane/walker , Overall status at discharge: patient is progressing back to baseline Quality Metrics Clinical Quality Measures [ No reported AMI, CVA or VTE this stay] Coding Level of Care Code 41486 Total time (in minutes) for Discharge: 65 Diagnoses Diabetic peripheral neuropathy associated with type 2 diabetes mellitus E11.42 Dislocation of tarsometatarsal joint of left foot, initial encounter S93.325A Encounter type: initial encounter Laterality: left Closed displaced fracture of first metatarsal bone of left foot, initial encounter S92.312A Encounter type: initial encounter Fracture alignment: displaced Fracture type: closed Closed displaced fracture of second metatarsal bone of left foot, initial encounter S92.322A Encounter type: initial encounter Fracture alignment: displaced Fracture type: closed Closed displaced fracture of third metatarsal bone of left foot, initial encounter S92.332A Encounter type: initial encounter Fracture alignment: displaced Fracture type: closed Closed nondisplaced fracture of fourth metatarsal bone of left foot, initial encounter S92.345A Encounter type: initial encounter Fracture alignment: nondisplaced Fracture type: closed Cuneiform fracture, foot 3+ pitting edema R60.9 Closed nondisplaced fracture of fifth metatarsal bone of left foot, initial encounter S92.355A Encounter type: initial encounter
[2024-11-09 10:09] LABS: Alanine Aminotransferase 12 U/L (0-41); Albumin Level 3.1 g/dL (3.5-5.2); Alkaline Phosphatase 64 U/L (40-130); Anion Gap 17.3 (5-19); Aspartate Amino Transferase 11 U/L (0-40); Blood Urea Nitrogen 17 mg/dL (6-20); Calcium 9.6 mg/dL (8.5-10.5); Carbon Dioxide 22 mmol/L (22-29); Chloride 97 mmol/L (98-107); Creatinine Clr Calc Pharmacy 131.7151; Globulin 3.2 g/dL (1.3-4.6); Glucose 219 mg/dL (65-115); Osmolality Calculated 282 mOsm/kg (285-295); Potassium 4.3 mmol/L (3.5-5.1); Sodium 132 mmol/L (136-145); Total Protein 6.3 g/dL (6.6-8.7)
[2024-11-09 10:49] LABS: Hematocrit 35.1 % (37-53); Hemoglobin 10.30 g/dL (11.27-16.99); Mean Corpuscular HGB Conc 29.3 g/dL (30-55); Mean Corpuscular Hemoglobin 25.1 pg (27-33); Mean Corpuscular Volume 85.4 fl (82-101); Nucleated Red Blood Cells % 0 %; Platelet Count 236 10^3/cmm (157-399); Red Blood Count 4.11 10^6/uL (3.85-5.65); White Blood Count 9.00 10^3/uL (3.29-11.43)
--- NOTE | 2024-11-09 12:18 | PC.NURSE ---
This nurse called report to Flavia at [facility] at 1216. Pt is a medicaid ride and will be awaiting ride for discharge.
== END 2024-11-09 15:40 | disposition intermediate care facility (04) | DRG 503 ==
LOC: ER 17:19 → MEDSURG 19:08
PROVIDERS: Podiatrist Foot & Ankle Surgery; Admitting Provider Internal Medicine; Emergency Provider Physician Assistant; PCP Internal Medicine; Visit Provider Student in an Organized Health Care Education/Training Program
PROC: 0QSP04Z Reposition Left Metatarsal with Internal Fixation Device, Open Approach (ICD-10-PCS; principal; 2024-11-07 08:00)
DX: S93.325A Dislocation of tarsometatarsal joint of left foot, initial encounter (principal); J96.92 Respiratory failure, unspecified with hypercapnia; Z68.41 Body mass index [BMI] 40.0-44.9, adult; S92.242A Displaced fracture of medial cuneiform of left foot, initial encounter for closed fracture; W01.0XXA Fall on same level from slipping, tripping and stumbling without subsequent striking against object, initial encounter; Y92.129 Unspecified place in nursing home as the place of occurrence of the external cause; S92.312A Displaced fracture of first metatarsal bone, left foot, initial encounter for closed fracture; S92.322A Displaced fracture of second metatarsal bone, left foot, initial encounter for closed fracture; S92.332A Displaced fracture of third metatarsal bone, left foot, initial encounter for closed fracture; S92.345A Nondisplaced fracture of fourth metatarsal bone, left foot, initial encounter for closed fracture; S92.355A Nondisplaced fracture of fifth metatarsal bone, left foot, initial encounter for closed fracture; F20.9 Schizophrenia, unspecified; Z91.199 Patient's noncompliance with other medical treatment and regimen due to unspecified reason; F17.210 Nicotine dependence, cigarettes, uncomplicated; E66.01 Morbid (severe) obesity due to excess calories; K21.9 Gastro-esophageal reflux disease without esophagitis; I10 Essential (primary) hypertension; G47.33 Obstructive sleep apnea (adult) (pediatric); E78.2 Mixed hyperlipidemia; Z79.4 Long term (current) use of insulin; Z79.84 Long term (current) use of oral hypoglycemic drugs; Z79.85 Long-term (current) use of injectable non-insulin antidiabetic drugs; E11.42 Type 2 diabetes mellitus with diabetic polyneuropathy; R00.0 Tachycardia, unspecified
CPT/HCPCS: 36415; 36416; 36600; 51702; 71275; 73630; 80051; 80053; 80061; 81001; 82330; 82607; 82746; 82805; 82962; 83036; 83540; 83550; 83735; 84443; 85025; 85378; 93005; 93971; 94660; 94760; 96372; 97161; 97530; 99285; C1713; C1762; J0330; J0690; J1650; J1815; J1938; J2250; J2405; J2704; J2710; J3010; J3490; J3535; J7030; J9999; Q0161; Q0175

== ENCOUNTER → 2024-11-18 12:48 | Outpatient (BNVA) | payer MEDICAID, SELFPAY | PROVIDERS: PCP Internal Medicine; Visit Provider Podiatrist Foot & Ankle Surgery | DX: Z98.890 Other specified postprocedural states (principal); E11.9 Type 2 diabetes mellitus without complications; Z79.4 Long term (current) use of insulin; S92.312A Displaced fracture of first metatarsal bone, left foot, initial encounter for closed fracture; S92.322A Displaced fracture of second metatarsal bone, left foot, initial encounter for closed fracture; S92.332A Displaced fracture of third metatarsal bone, left foot, initial encounter for closed fracture; S92.345A Nondisplaced fracture of fourth metatarsal bone, left foot, initial encounter for closed fracture; S92.355A Nondisplaced fracture of fifth metatarsal bone, left foot, initial encounter for closed fracture; S93.325A Dislocation of tarsometatarsal joint of left foot, initial encounter; X58.XXXA Exposure to other specified factors, initial encounter | CPT/HCPCS: 73630; 99024 ==

== ENCOUNTER → 2024-11-25 14:28 | Outpatient (BNVA) | payer MEDICAID, SELFPAY | PROVIDERS: PCP Internal Medicine; Visit Provider Podiatrist Foot & Ankle Surgery | DX: Z98.890 Other specified postprocedural states (principal); S93.325A Dislocation of tarsometatarsal joint of left foot, initial encounter; S92.355A Nondisplaced fracture of fifth metatarsal bone, left foot, initial encounter for closed fracture; S92.345A Nondisplaced fracture of fourth metatarsal bone, left foot, initial encounter for closed fracture; S92.332A Displaced fracture of third metatarsal bone, left foot, initial encounter for closed fracture; S92.322A Displaced fracture of second metatarsal bone, left foot, initial encounter for closed fracture; S92.312A Displaced fracture of first metatarsal bone, left foot, initial encounter for closed fracture; E11.9 Type 2 diabetes mellitus without complications; Z79.4 Long term (current) use of insulin; X58.XXXA Exposure to other specified factors, initial encounter | CPT/HCPCS: 29405; 73630; 99024 ==

== ENCOUNTER → 2024-12-02 06:57 | Outpatient (BNVA) | payer MEDICAID, SELFPAY | PROVIDERS: PCP Internal Medicine; Visit Provider Podiatrist Foot & Ankle Surgery | DX: Z98.890 Other specified postprocedural states (principal) | CPT/HCPCS: 99024 ==

== ENCOUNTER → 2024-12-14 13:50 | Outpatient (BNVA) | payer MEDICAID, SELFPAY | PROVIDERS: PCP Internal Medicine; Visit Provider Podiatrist Foot & Ankle Surgery | DX: Z98.890 Other specified postprocedural states (principal); E11.42 Type 2 diabetes mellitus with diabetic polyneuropathy; Z79.4 Long term (current) use of insulin | CPT/HCPCS: 73630; 99024 ==

== ENCOUNTER → 2024-12-30 07:56 | Outpatient (BNVA) | payer MEDICAID, SELFPAY | PROVIDERS: PCP Internal Medicine; Visit Provider Podiatrist Foot & Ankle Surgery | DX: E11.42 Type 2 diabetes mellitus with diabetic polyneuropathy (principal); S93.325D Dislocation of tarsometatarsal joint of left foot, subsequent encounter; X58.XXXD Exposure to other specified factors, subsequent encounter; Z91.199 Patient's noncompliance with other medical treatment and regimen due to unspecified reason; Z79.4 Long term (current) use of insulin | CPT/HCPCS: 73630; 99214 ==

== ENCOUNTER → 2025-01-27 12:32 | Outpatient (BNVA) | payer MEDICAID, SELFPAY | PROVIDERS: PCP Internal Medicine; Visit Provider Podiatrist Foot & Ankle Surgery | DX: S93.325D Dislocation of tarsometatarsal joint of left foot, subsequent encounter (principal); X58.XXXD Exposure to other specified factors, subsequent encounter; Z98.890 Other specified postprocedural states; E11.42 Type 2 diabetes mellitus with diabetic polyneuropathy; Z91.199 Patient's noncompliance with other medical treatment and regimen due to unspecified reason; Z79.4 Long term (current) use of insulin; Z79.85 Long-term (current) use of injectable non-insulin antidiabetic drugs | CPT/HCPCS: 73630 ==

== ENCOUNTER 2025-01-27 13:24 | Outpatient (CLI) | payer MEDICAID, SELFPAY | END 2025-01-27 13:25 | disposition home or self-care (01) | LOC: SPT 13:25 | PROVIDERS: PCP Internal Medicine; Visit Provider Podiatrist Foot & Ankle Surgery | DX: Z47.89 Encounter for other orthopedic aftercare (principal); Z98.890 Other specified postprocedural states | CPT/HCPCS: L4361 ==

== ENCOUNTER 2025-02-24 12:52 | Outpatient (CLI) | payer MEDICAID, SELFPAY ==
--- NOTE | 2025-02-24 12:59 | XRR_ITS ---
PROCEDURE INFORMATION: Exam: XR Left Foot Exam date and time: 02/24/2025 1:18 PM Age: 44 years old Clinical indication: Pain; Left; Prior surgery; Surgery date: 1-6 months; Surgery type: Fracture repairs in foot; Additional info: Check on healing and fusion-left midfooot fusion post op TECHNIQUE: Imaging protocol: Radiologic exam of the left foot. Views: 3 or more views. COMPARISON: CR XR foot LT min 3V* [id number] 01/27/2025 12:42 PM FINDINGS: Bones/joints: Orthopedic fixation with plate and screws across the Lisfranc articulation with plates involving the 1st and 2nd metatarsals with the medial and middle cuneiforms. Additional screw traverses the 3rd metatarsal base with the lateral cuneiform. Majority of the underlying fractures appear nonunited. Mild lucency at the 3rd metatarsal screw, concerning for mild loosening as it enters the lateral cuneiform. Soft tissues: Severe dorsal soft tissue swelling. If there is concern for infected hardware, recommend MRI. XR/XR foot LT min 3V* [id number] IMPRESSION: Severe dorsal soft tissue swelling. If there is concern for infected hardware, recommend MRI.
== END 2025-02-24 12:53 | disposition home or self-care (01) ==
PROVIDERS: PCP Internal Medicine; Visit Provider Podiatrist Foot & Ankle Surgery
DX: S92.355G Nondisplaced fracture of fifth metatarsal bone, left foot, subsequent encounter for fracture with delayed healing (principal); S92.345A Nondisplaced fracture of fourth metatarsal bone, left foot, initial encounter for closed fracture; S92.332A Displaced fracture of third metatarsal bone, left foot, initial encounter for closed fracture; S92.322A Displaced fracture of second metatarsal bone, left foot, initial encounter for closed fracture; S92.312A Displaced fracture of first metatarsal bone, left foot, initial encounter for closed fracture; X58.XXXA Exposure to other specified factors, initial encounter; X58.XXXD Exposure to other specified factors, subsequent encounter; M79.89 Other specified soft tissue disorders
CPT/HCPCS: 73630

== ENCOUNTER → 2025-04-18 11:10 | Outpatient (BNVA) | payer MEDICAID, SELFPAY | PROVIDERS: PCP Internal Medicine; Visit Provider Podiatrist Foot & Ankle Surgery | DX: S93.325D Dislocation of tarsometatarsal joint of left foot, subsequent encounter (principal); E11.42 Type 2 diabetes mellitus with diabetic polyneuropathy; X58.XXXD Exposure to other specified factors, subsequent encounter; Z79.4 Long term (current) use of insulin; Z79.85 Long-term (current) use of injectable non-insulin antidiabetic drugs | CPT/HCPCS: 73630; 99213 ==